=== PATIENT | male | born 1960 | race Caucasian/White ===

== ENCOUNTER 2019-11-07 11:01 | Inpatient (IN) | payer OTHER ==
[~2019-11-07] VITALS: Ht 182.9 cm; Wt 100.6 kg
[2019-11-07] MEDS ORDERED: ASPirin 81 mg TAB PO ONE (11:15)
[2019-11-07] MEDS ORDERED: ONDANSETRON HCL 4 MG/2 ML VIAL IV ONE (11:15)
[2019-11-07] MEDS ORDERED: MORPHINE SULFATE 4 MG/ML SYR/VIAL IV ONE (11:15)
[2019-11-07] MEDS ORDERED: ATENOLOL 25 MG TAB PO ONE (11:30)
[2019-11-07] MEDS ORDERED: dilTIAZem 25 MG/5 ML VIAL IV ONE (11:30)
[2019-11-07 11:54] LABS: Basophils # (auto) 0.1 10 ^3/uL (0-0.2); Basophils % (auto) 0.7 % (0.0-2.0); Eosinophils # (auto) 0.1 10 ^3/uL (0-0.8); Eosinophils % (auto) 0.6 % (0.0-7.0); Hematocrit 46.6 % (41.0-53.0); Hemoglobin 16.4 g/dL (13.5-17.5); Lymphocytes # (auto) 1.3 10 ^3/uL (0.4-5.4); Lymphocytes % (auto) 15.5 % (10.0-50.0); Mean Corpuscular Hgb Conc. 35.1 g/dL (32.0-36.0); Mean Corpuscular Volume 102.6 fL (80.0-100.0); Monocytes # (auto) 0.5 10 ^3/uL (0-1.3); Monocytes % (auto) 6.1 % (0.0-12.0); Neutrophils # (auto) 6.5 10 ^3/uL (1.6-8.6); Neutrophils % (auto) 77.1 % (37.0-80.0); Platelet Count (auto) 207 10^3/uL (140-450); Red Blood Cells 4.54 10^6/uL (4.5-5.90); Red Cell Distribution Width 13.5 % (11.8-14.3); White Blood Cell 8.5 10^3/uL (4.4-10.8)
[2019-11-07 12:09] LABS: Albumin 4.1 g/dL (3.4-5.0); Calcium 9.4 mg/dL (8.5-10.1); Potassium 4.1 mmol/L (3.5-5.1)
[2019-11-07 12:15] LABS: BUN/Creatinine Ratio 14.4; Bilirubin, Total 2.8 mg/dL (0.2-1.0); Total Protein 8.7 g/dL (6.4-8.2)
[2019-11-07] MEDS ORDERED: IOHEXOL 350 MG/ML 100ML IJ ONE (14:14)
[2019-11-07] MEDS ORDERED: traMADol HCL 50 MG TAB PO PRN (14:15)
[2019-11-07] MEDS ORDERED: NITROGLYCERIN 0.4 MG SL TAB SL PRN (14:15)
[2019-11-07] MEDS ORDERED: AMIODARONE HCL 150 MG in D5W 5% 100 ML IV ONE (14:15)
[2019-11-07] MEDS ORDERED: LACTULOSE 20Gm/30ML SOLN PO PRN (14:15)
[2019-11-07] MEDS ORDERED: ENOXAPARIN SOD 100 MG/1 ML SYRINGE SC ONE (14:15)
[2019-11-07] MEDS ORDERED: MORPHINE SULF INJ 2 MG/ML SYRINGE 1ML IV PRN (14:15)
[2019-11-07] MEDS ORDERED: ACETAMINOPHEN 500 MG TAB PO PRN (14:15)
[2019-11-07] MEDS ORDERED: AMIODARONE 450mg/250ml AE 250 ML IV SCH ×2 (14:25→20:25)
[2019-11-07] MEDS ORDERED: DIGOXIN (250MCG/ML) 2 ML AMPULE IV ONE (16:30)
[2019-11-07] MEDS ORDERED: SODIUM CHLORIDE 0.9% 1,000 ML IV ONE (16:30)
[2019-11-07] MEDS ORDERED: cefTRIAXone 1GM/50ML D5W 50 ML IV ONE (18:30)
[2019-11-07] MEDS ORDERED: FAMOTIDINE (10MG/ML) 2ML VL IV SCH (18:30)
[2019-11-07 19:05] LABS: Amylase 34 U/L (25-115); Lipase 168 U/L (73-393)
--- NOTE | 2019-11-07 20:25 | NUR ---
Telemetry admit from ER LUIS ALFREDO CHARLES admitted to Telemetry unit after SBAR received. Patient oriented to Anneliese parish RN, unit, room, bed, and unit policies regarding patient care and visiting hours. Patient now on continuous telemetry monitoring, tele box # 74 and telemetry reading on arrival to unit is AFIB 99. Patient placed on bedside oxygen, weighed by bed scale and encouraged to call if they need something. All questions and concerns addressed, patient verbalized understanding. Note: Came per wheelchair awake alert oriented x 4, placed in the bed comfortably, vital signs checked.
[2019-11-07] MEDS: metroNIDAZOLE 500MG/100ML 100 ML IV SCH (21:18)
[2019-11-07] MEDS ORDERED: SPIR50TA5 PO (21:19)
[2019-11-07] MEDS ORDERED: DILT60TA27 PO (21:19)
[2019-11-07] MEDS ORDERED: SOTA120T39 PO (21:19)
[2019-11-07] MEDS ORDERED: POTA1TAB61 PO (21:19)
[2019-11-07] MEDS ORDERED: ASPI81CH43 PO (21:19)
[2019-11-07 22:00] VITALS: BP 101/70
[2019-11-07] MEDS: METOPROLOL TARTRATE 25 MG TAB PO SCH (22:00)
--- NOTE | 2019-11-07 22:00 | NUR ---
Clarified to Marion Sanches regarding the amiodarone drip , relayed heart rate is 94-99, also the blood pressure of 101/70, and said its the protocol,to continue as ordered.
[2019-11-07] MEDS: ATORVASTATIN 20 MG TAB PO SCH (22:14)
[2019-11-07] MEDS: ENOXAPARIN SOD 100 MG/1 ML SYRINGE SC SCH (22:14)
[2019-11-08 05:00] VITALS: BP 102/69
[2019-11-08] MEDS: metroNIDAZOLE 500MG/100ML 100 ML IV SCH ×3 (05:54→21:36)
[2019-11-08 06:09] LABS: Basophils # (auto) 0 10 ^3/uL (0-0.2); Eosinophils # (auto) 0.1 10 ^3/uL (0-0.8); Hemoglobin 13.6 g/dL (13.5-17.5); Lymphocytes # (auto) 0.9 10 ^3/uL (0.4-5.4); Monocytes # (auto) 0.3 10 ^3/uL (0-1.3); Neutrophils # (auto) 2.4 10 ^3/uL (1.6-8.6); Nucleated Red Blood Cells % 0.1 %; White Blood Cell 3.6 10^3/uL (4.4-10.8)
[2019-11-08 06:11] LABS: Basophils % (auto) 1.1 % (0.0-2.0); Eosinophils % (auto) 1.6 % (0.0-7.0); Hematocrit 39.2 % (41.0-53.0); Lymphocytes % (auto) 23.8 % (10.0-50.0); Mean Corpuscular Hgb Conc. 34.7 g/dL (32.0-36.0); Monocytes % (auto) 8.6 % (0.0-12.0); Neutrophils % (auto) 64.9 % (37.0-80.0); Platelet Count (auto) 129 10^3/uL (140-450); Red Blood Cells 3.77 10^6/uL (4.5-5.90); Red Cell Distribution Width 13.4 % (11.8-14.3)
[2019-11-08 06:20] LABS: Alcohol, Urine < 3.0 mg/dL (0-10); Amphetamine Screen, Urine NEGATIVE (NEGATIVE); Barbiturate Scree,Urine NEGATIVE (NEGATIVE); Benzodiazephine Screen, Urine NEGATIVE (NEGATIVE); Cannabinoid Screen, Urine NEGATIVE (NEGATIVE); Cocaine Screen, Urine NEGATIVE (NEGATIVE); Phencyclidine Screen, Urine NEGATIVE (NEGATIVE)
[2019-11-08 06:26] LABS: Albumin 3.3 g/dL (3.4-5.0); Anion Gap 6 (5-15); Blood Urea Nitrogen 15 mg/dL (7-18); Calcium 8.2 mg/dL (8.5-10.1); Carbon Dioxide 27 mmol/L (21-32); Chloride 100 mmol/L (98-107); Glucose 147 mg/dL (74-106); Potassium 3.7 mmol/L (3.5-5.1); Sodium 133 mmol/L (136-145)
[2019-11-08 06:32] LABS: Alanine Aminotransferase 38 U/L (16-61); Alkaline Phosphatase 104 U/L (45-117); Aspartate Aminotransferase 66 U/L (15-37); BUN/Creatinine Ratio 17.2; Bilirubin, Total 1.6 mg/dL (0.2-1.0); Cholesterol 155 mg/dL (< 200); GFR African American 115 mL/min; GFR Non-African American 95 mL/min; HDL Cholesterol 35 mg/dL (40-59); LDL Cholesterol 117 mg/dL (< 100); Total Protein 7.1 g/dL (6.4-8.2); Triglycerides 72 mg/dL (< 150)
[2019-11-08 06:40] LABS: Opiate Scree,Urine POSITIVE (NEGATIVE)
--- NOTE | 2019-11-08 07:24 | NUR ---
Care report given to Shashank Benjamin, patient is NPO maintained for surgical consult.
--- NOTE | 2019-11-08 08:00 | NUR ---
OPENING SHIFT NOTE: PATIENT AWAKE A/OX4 RESTING SUPINE IN BED. PATIENT UPDATED ON PLAN OF CARE. VERBALIZED UNDERSTANDING. PATIENT REPORTING PAIN 9/10, WILL MEDICATE ORDERED. CALL LIGHT WITHIN REACH, WILL CONTINUE TO MONITOR.
[2019-11-08] MEDS ORDERED: AMIODARONE HCL 200 MG TAB PO ONE (08:15)
--- NOTE | 2019-11-08 08:29 | NUR ---
PATIENT TAKEN DOWN TO NUC MED.
--- NOTE | 2019-11-08 09:17 | NUR ---
PATIENT BACK IN ROOM FROM HIDA SCAN.
[2019-11-08] MEDS ORDERED: ASPirin 81 mg TAB PO SCH (10:00)
[2019-11-08] MEDS: PANTOPRAZOLE 40 MG TAB PO SCH (10:03)
[2019-11-08] MEDS: ASPirin 81 mg TAB PO SCH (10:03)
[2019-11-08] MEDS: METOPROLOL TARTRATE 25 MG TAB PO SCH ×2 (10:05→22:00)
[2019-11-08] MEDS: ENOXAPARIN SOD 100 MG/1 ML SYRINGE SC SCH ×2 (10:07→22:06)
[2019-11-08] MEDS: MORPHINE SULF INJ 2 MG/ML SYRINGE 1ML IV PRN ×2 (10:08→16:54)
[2019-11-08] MEDS: PROMETHAZINE HCL 25 MG/ML 1ML IV PRN (10:08)
--- NOTE | 2019-11-08 11:13 | NUR ---
MD DEGROOT AT BEDSIDE.. DISCUSSING POC SURGERY NOT NECESSARY AT THIS TIME. PT. VERBALIZED UNDERSTANDING.
[2019-11-08 13:16] VITALS: BP 102/68
[2019-11-08] MEDS ORDERED: DIGOXIN 0.125 MG TAB PO ONE (15:45)
[2019-11-08 17:21] LABS: Urine Bacteria NONE SEEN /hpf (None Seen); Urine Blood 1+ /uL (Negative); Urine Hyaline Cast FEW /lpf (0 - 2); Urine Mucus FEW (None Seen); Urine Specific Gravity 1.026 (1.001-1.035); Urine WBC 1 /hpf (0 - 3)
[2019-11-08 17:49] VITALS: BP 97/64
--- NOTE | 2019-11-08 18:53 | NUR ---
CARE ENDORSED TO NOC RN.
--- NOTE | 2019-11-08 20:00 | NUR ---
Opening Shift Note Assumed care of patient, awake and alert. No S/S of distress/SOB or pain. Instructed on POC and to call for assist PRN, will continue to monitor for changes Q1hr and PRN.
[2019-11-08] MEDS: ATORVASTATIN 20 MG TAB PO SCH (21:37)
[2019-11-08] MEDS: cefTRIAXone 1GM/50ML D5W 50 ML IV SCH (21:43)
[2019-11-08 22:00] VITALS: BP 98/62
[2019-11-09 05:00] VITALS: BP 93/62
[2019-11-09] MEDS: MORPHINE SULF INJ 2 MG/ML SYRINGE 1ML IV PRN ×3 (05:24→21:48)
[2019-11-09] MEDS: metroNIDAZOLE 500MG/100ML 100 ML IV SCH ×3 (05:39→21:49)
[2019-11-09 07:12] LABS: Basophils # (auto) 0 10 ^3/uL (0-0.2); Basophils % (auto) 0.7 % (0.0-2.0); Eosinophils # (auto) 0.1 10 ^3/uL (0-0.8); Hemoglobin 13.3 g/dL (13.5-17.5); Monocytes # (auto) 0.3 10 ^3/uL (0-1.3); Platelet Count (auto) 113 10^3/uL (140-450)
[2019-11-09 07:19] LABS: Hematocrit 38.1 % (41.0-53.0); Lymphocytes # (auto) 0.9 10 ^3/uL (0.4-5.4); Lymphocytes % (auto) 27.8 % (10.0-50.0); Mean Corpuscular Hemoglobin 36.3 pg (28.0-32.0); Mean Corpuscular Volume 103.6 fL (80.0-100.0); Monocytes % (auto) 7.8 % (0.0-12.0); Neutrophils # (auto) 2.1 10 ^3/uL (1.6-8.6); Neutrophils % (auto) 61.7 % (37.0-80.0); Nucleated Red Blood Cells % 0.1 %; Red Blood Cells 3.68 10^6/uL (4.5-5.90); Red Cell Distribution Width 13.4 % (11.8-14.3); White Blood Cell 3.4 10^3/uL (4.4-10.8)
--- NOTE | 2019-11-09 07:26 | NUR ---
Care report given to Shashank Plasencia, patient is resting no discomfort.
--- NOTE | 2019-11-09 07:30 | NUR ---
Opening Shift Note Assuming care of patient at this time. Patient is awake and alert. Patient denies pain at this time. Patient shows no signs or symptoms of distress or shortness of breath. Bed is locked and lowered with side rails up x2. Instructed patient on the plan of care for today and to call for assistance as needed. Call light within reach. Will continue to round hourly and as needed.
[2019-11-09 07:36] LABS: Anion Gap 5 (5-15); Blood Urea Nitrogen 13 mg/dL (7-18); Calcium 8.2 mg/dL (8.5-10.1); Carbon Dioxide 26 mmol/L (21-32); Chloride 105 mmol/L (98-107); Glucose 102 mg/dL (74-106); Potassium 3.5 mmol/L (3.5-5.1); Sodium 136 mmol/L (136-145)
[2019-11-09 07:43] LABS: Alanine Aminotransferase 38 U/L (16-61); Alkaline Phosphatase 98 U/L (45-117); Aspartate Aminotransferase 58 U/L (15-37); BUN/Creatinine Ratio 17.8; GFR African American 140 mL/min; GFR Non-African American 116 mL/min; Total Protein 6.6 g/dL (6.4-8.2)
[2019-11-09 09:00] VITALS: BP 100/65
[2019-11-09] MEDS: DIGOXIN 0.125 MG TAB PO SCH (09:54)
[2019-11-09] MEDS: PANTOPRAZOLE 40 MG TAB PO SCH (09:54)
[2019-11-09] MEDS: ASPirin 81 mg TAB PO SCH (09:54)
[2019-11-09] MEDS: METOPROLOL TARTRATE 25 MG TAB PO SCH ×2 (09:55→23:42)
[2019-11-09] MEDS: ENOXAPARIN SOD 100 MG/1 ML SYRINGE SC SCH ×2 (10:00→23:43)
[2019-11-09 13:00] VITALS: BP 118/74
[2019-11-09 17:14] VITALS: BP 110/69
--- NOTE | 2019-11-09 19:22 | NUR ---
Closing Shift Note Patient resting in bed. No distress noted. Report given. Will endorse care to director of partnerships RN.
[2019-11-09] MEDS: PROMETHAZINE HCL 25 MG/ML 1ML IV PRN (21:24)
--- NOTE | 2019-11-09 21:48 | NUR ---
Morphine given for pain in pt's chest and back that he says is the same type pain he has been having and receiving MS. Phenergan given to prevent poss N?V from morphine.
[2019-11-09 22:00] VITALS: BP 113/77
[2019-11-09] MEDS: cefTRIAXone 1GM/50ML D5W 50 ML IV SCH (23:39)
[2019-11-09] MEDS: ATORVASTATIN 20 MG TAB PO SCH (23:43)
--- NOTE | 2019-11-10 00:10 | NUR ---
Speaking with pt re. his medications, reviewing SE of metoprolol and atorvastatin. Pt has been on metoprolol before and had diff with dizziness and light headedness. He agreed to take it tonight but wants to talk to DrSheron about getting on sotalol instead. Pt states pain med given earlier, "knocked it out".
[2019-11-10 05:00] VITALS: BP 104/73
[2019-11-10] MEDS: metroNIDAZOLE 500MG/100ML 100 ML IV SCH ×3 (05:49→22:27)
[2019-11-10 09:00] VITALS: BP 104/73
[2019-11-10] MEDS ORDERED: RIVAROXABAN 20 MG TAB PO SCH (10:00)
[2019-11-10] MEDS: AMIODARONE HCL 200 MG TAB PO SCH ×2 (10:12→21:38)
[2019-11-10] MEDS: DIGOXIN 0.125 MG TAB PO SCH (10:12)
[2019-11-10] MEDS: ASPirin 81 mg TAB PO SCH (10:12)
[2019-11-10] MEDS: METOPROLOL TARTRATE 25 MG TAB PO SCH ×2 (10:14→21:39)
[2019-11-10] MEDS: PANTOPRAZOLE 40 MG TAB PO SCH (10:14)
--- NOTE | 2019-11-10 10:20 | NUR ---
Spoke to Nursing Aide MD Allen aware of patient's status. states Cardioversion tomorrow and give Xarelto now and tomorrow morning. Will medicate as ordered and cont care.
[2019-11-10 11:44] LABS: Basophils # (auto) 0 10 ^3/uL (0-0.2); Eosinophils # (auto) 0.1 10 ^3/uL (0-0.8); Neutrophils # (auto) 2.3 10 ^3/uL (1.6-8.6); Red Cell Distribution Width 13.9 % (11.8-14.3); White Blood Cell 3.5 10^3/uL (4.4-10.8)
[2019-11-10 11:46] LABS: Basophils % (auto) 1.3 % (0.0-2.0); Eosinophils % (auto) 1.7 % (0.0-7.0); Hematocrit 40.4 % (41.0-53.0); Hemoglobin 13.6 g/dL (13.5-17.5); Lymphocytes # (auto) 0.8 10 ^3/uL (0.4-5.4); Lymphocytes % (auto) 23.1 % (10.0-50.0); Mean Corpuscular Hemoglobin 35.5 pg (28.0-32.0); Mean Corpuscular Hgb Conc. 33.7 g/dL (32.0-36.0); Mean Corpuscular Volume 105.2 fL (80.0-100.0); Monocytes # (auto) 0.4 10 ^3/uL (0-1.3); Monocytes % (auto) 10.2 % (0.0-12.0); Neutrophils % (auto) 63.7 % (37.0-80.0); Platelet Count (auto) 111 10^3/uL (140-450); Red Blood Cells 3.84 10^6/uL (4.5-5.90)
[2019-11-10 11:59] LABS: INR 1.29 (0.9-1.15)
[2019-11-10 12:09] LABS: Potassium 3.4 mmol/L (3.5-5.1)
--- NOTE | 2019-11-10 12:30 | NUR ---
Nutrition Assessment Est energy needs 4352-0700 kcal (14-18 kcal/kg BW 102.3kg) Est protein needs 81-105g (1-1.3g/kg IBW 80.9kg) Will reassess prn. Addendum: 11/10/19 at 1231 by [address] Amended: Links added.
[2019-11-10 12:34] VITALS: BP 103/70
[2019-11-10 17:00] VITALS: BP 105/70
--- NOTE | 2019-11-10 19:00 | NUR ---
Patient care endorsed to Antonia rn. Patient sitting up in bed no acute distress or sob noted. Call light within reach.
[2019-11-10] MEDS: cefTRIAXone 1GM/50ML D5W 50 ML IV SCH (21:38)
[2019-11-10] MEDS: ATORVASTATIN 20 MG TAB PO SCH (21:39)
[2019-11-10] MEDS: TEMAZEPAM 15 MG CAP PO PRN (21:39)
[2019-11-10 22:00] VITALS: BP 123/79
[2019-11-10] MEDS: PROMETHAZINE HCL 25 MG/ML 1ML IV PRN (23:35)
[2019-11-10] MEDS: MORPHINE SULF INJ 2 MG/ML SYRINGE 1ML IV PRN (23:35)
[2019-11-11 05:00] VITALS: BP 98/59
[2019-11-11] MEDS: metroNIDAZOLE 500MG/100ML 100 ML IV SCH ×2 (06:05→14:17)
[2019-11-11 06:32] LABS: Basophils # (auto) 0 10 ^3/uL (0-0.2); Eosinophils # (auto) 0.1 10 ^3/uL (0-0.8); Hemoglobin 13.5 g/dL (13.5-17.5); Monocytes # (auto) 0.3 10 ^3/uL (0-1.3); Red Cell Distribution Width 13.9 % (11.8-14.3); White Blood Cell 3.4 10^3/uL (4.4-10.8)
[2019-11-11 06:35] LABS: Basophils % (auto) 1.3 % (0.0-2.0); Eosinophils % (auto) 3.2 % (0.0-7.0); Hematocrit 40.1 % (41.0-53.0); Lymphocytes # (auto) 0.8 10 ^3/uL (0.4-5.4); Lymphocytes % (auto) 23.9 % (10.0-50.0); Mean Corpuscular Hemoglobin 35.5 pg (28.0-32.0); Mean Corpuscular Hgb Conc. 33.6 g/dL (32.0-36.0); Mean Corpuscular Volume 105.5 fL (80.0-100.0); Monocytes % (auto) 9.2 % (0.0-12.0); Neutrophils # (auto) 2.1 10 ^3/uL (1.6-8.6); Neutrophils % (auto) 62.4 % (37.0-80.0); Nucleated Red Blood Cells % 0.1 %; Platelet Count (auto) 96 10^3/uL (140-450)
[2019-11-11 07:12] LABS: BUN/Creatinine Ratio 16.9; Calcium 8.8 mg/dL (8.5-10.1); Potassium 3.7 mmol/L (3.5-5.1)
[2019-11-11 09:00] VITALS: BP 106/68
[2019-11-11] MEDS: METOPROLOL TARTRATE 25 MG TAB PO SCH ×2 (09:07→20:57)
[2019-11-11] MEDS: ASPirin 81 mg TAB PO SCH (09:07)
[2019-11-11] MEDS: PANTOPRAZOLE 40 MG TAB PO SCH (09:08)
[2019-11-11] MEDS: DIGOXIN 0.125 MG TAB PO SCH (09:08)
[2019-11-11] MEDS: AMIODARONE HCL 200 MG TAB PO SCH ×2 (09:08→20:57)
[2019-11-11] MEDS: RIVAROXABAN 20 MG TAB PO SCH (09:09)
[2019-11-11 13:00] VITALS: BP 100/70
[2019-11-11 16:54] VITALS: BP 99/67
[2019-11-11] MEDS: ATORVASTATIN 20 MG TAB PO SCH (20:56)
[2019-11-11] MEDS: MORPHINE SULF INJ 2 MG/ML SYRINGE 1ML IV PRN (20:58)
[2019-11-11] MEDS: PROMETHAZINE HCL 25 MG/ML 1ML IV PRN (20:58)
[2019-11-11] MEDS: TEMAZEPAM 15 MG CAP PO PRN (20:58)
[2019-11-11 22:28] VITALS: BP 116/71
[2019-11-12] VITALS: BP 145/74
[2019-11-12 00:05] VITALS: BP 106/52
[2019-11-12 05:00] VITALS: BP 97/70
[2019-11-12 06:52] LABS: Basophils # (auto) 0 10 ^3/uL (0-0.2); Eosinophils # (auto) 0.1 10 ^3/uL (0-0.8); Monocytes # (auto) 0.4 10 ^3/uL (0-1.3); Neutrophils # (auto) 2.5 10 ^3/uL (1.6-8.6); Nucleated Red Blood Cells % 0.1 %; Platelet Count (auto) 107 10^3/uL (140-450); White Blood Cell 4.1 10^3/uL (4.4-10.8)
[2019-11-12 06:53] LABS: Basophils % (auto) 0.8 % (0.0-2.0); Eosinophils % (auto) 3.1 % (0.0-7.0); Hematocrit 40.4 % (41.0-53.0); Lymphocytes # (auto) 1.1 10 ^3/uL (0.4-5.4); Lymphocytes % (auto) 25.8 % (10.0-50.0); Mean Corpuscular Hemoglobin 36.2 pg (28.0-32.0); Mean Corpuscular Hgb Conc. 34.7 g/dL (32.0-36.0); Mean Corpuscular Volume 104.4 fL (80.0-100.0); Monocytes % (auto) 10.2 % (0.0-12.0); Neutrophils % (auto) 60.1 % (37.0-80.0); Red Blood Cells 3.87 10^6/uL (4.5-5.90); Red Cell Distribution Width 13.7 % (11.8-14.3)
[2019-11-12 07:10] LABS: Potassium 3.8 mmol/L (3.5-5.1)
[2019-11-12 07:17] LABS: BUN/Creatinine Ratio 18.2; Calcium 8.7 mg/dL (8.5-10.1)
[2019-11-12 09:00] VITALS: BP 105/71
[2019-11-12] MEDS: PANTOPRAZOLE 40 MG TAB PO SCH (10:20)
[2019-11-12] MEDS: ASPirin 81 mg TAB PO SCH (10:20)
[2019-11-12] MEDS: AMIODARONE HCL 200 MG TAB PO SCH (10:20)
[2019-11-12] MEDS: METOPROLOL TARTRATE 25 MG TAB PO SCH (10:22)
[2019-11-12] MEDS: RIVAROXABAN 20 MG TAB PO SCH (10:23)
[2019-11-12] MEDS: DIGOXIN 0.125 MG TAB PO SCH (10:23)
--- NOTE | 2019-11-12 11:40 | NUR ---
cardioversion patient transported via hospital bed. consents signed and in the chart. patient denied pain, no SOB respirations relaxed and even. Endorsed care to preop nurse.
[2019-11-12] MEDS ORDERED: MIDAZOLAM HCL 1MG/1ML-2 ML VIAL IV ONE (12:45)
--- NOTE | 2019-11-12 14:30 | NUR ---
RETURNED FROM HOTEL OR MOTEL MANAGER PATIENT CARDIOVERTED BY DR JOHNSON. CURRENTLY A NSR 65 BP 94/61. PATIENT TOLERATED WELL, DENIED PAIN, NO SOB. CHEST MILD REDNESS TO LEFT LATERAL CHEST AND UPPER RIGHT CHEST. WILL CONTINUE TO MONITOR.
[2019-11-12 14:50] VITALS: BP 105/71
[2019-11-12 16:55] VITALS: BP 101/59
--- NOTE | 2019-11-12 19:20 | NUR ---
OPENING SHIFT- NOC SHIFT PATIENT ALREADY DISCHARGED DURING DAY SHIFT. DISCHARGE PAPER WORK COMPLETED ENTIRELY BY AREA FIELD WORKER RN. PATIENTIS WAITING FOR A RIDE. DISCHARGE INSTRUCTIONS GIVEN. ALL PERSONAL BELONGINGS ACCOUNTED FOR AND WITH PATIENT.
--- NOTE | 2019-11-12 19:24 | NUR ---
ENDORSED TO NIGHT RN PATIENT ALREADY DISCHARGED, WAITING FOR A RIDE. IV REMOVED, TELE BOX SENT TO ICU. NEW MEDICATIONS REVIEWED AND EDUCATION PROVIDED. DISCHARGE INSTRUCTIONS GIVEN. ALL PERSONAL BELONGINGS ACCOUNTED FOR.
--- NOTE | 2019-11-12 20:55 | NUR ---
PATIENT OFF FLOOR WALKING INDEPENDENTLY, STEADY GAIT NOTED. NO S/SX OF DISTRESS, SOB OR PAIN. PATIENT STATES THAT HE HAD A PLEASANT STAY. ALL BELONGINGS WITH PATIENT, INCLUDING DISCHARGE PAPER WORK AND INSTRUCTIONS. . THIS PATIENT WAS DISCHARGED DURING DAY SHIFT; PATIENT WAS WAITING FOR RIDE.
[2019-11-13] MEDS ORDERED: AMIODARONE HCL 200 MG TAB PO SCH (10:00)
[2019-11-26] MEDS ORDERED: AMIODARONE HCL 200 MG TAB PO SCH (22:00)
== END 2019-11-12 20:55 | disposition home or self-care (01) | DRG 308 ==
LOC: ER 11:01 → OVERFLOW 11:02 → TELE-WESTW 20:48
PROVIDERS: ADMIT Internal Medicine; ATTEND Internal Medicine
PROC: 5A2204Z Restoration of Cardiac Rhythm, Single (ICD-10-PCS; principal; 2019-11-12)
DX: I48.92 Unspecified atrial flutter (principal); I33.0 Acute and subacute infective endocarditis; I50.23 Acute on chronic systolic (congestive) heart failure; D68.69 Other thrombophilia; E44.0 Moderate protein-calorie malnutrition; E87.1 Hypo-osmolality and hyponatremia; I85.00 Esophageal varices without bleeding; K76.6 Portal hypertension; K92.2 Gastrointestinal hemorrhage, unspecified; J98.11 Atelectasis; I48.20 Chronic atrial fibrillation, unspecified; E66.9 Obesity, unspecified; E78.5 Hyperlipidemia, unspecified; I48.0 Paroxysmal atrial fibrillation; K76.0 Fatty (change of) liver, not elsewhere classified; Z79.899 Other long term (current) drug therapy; Z82.49 Family history of ischemic heart disease and other diseases of the circulatory system; Z86.711 Personal history of pulmonary embolism; Z86.718 Personal history of other venous thrombosis and embolism; Z68.30 Body mass index [BMI] 30.0-30.9, adult
CPT/HCPCS: 36415; 71045; 71275; 76705; 78226; 80048; 80053; 80061; 80307; 81001; 82150; 83036; 83690; 83735; 83880; 84443; 84484; 85025; 85379; 85610; 85652; 87081; 93005; 93306; 93970; 96374; 96375; 99152; 99291; G0378; J0696; J2250; J2405; J3490; J7060

== ENCOUNTER 2020-05-08 17:15 | Inpatient (IN) | payer MEDICAID, OTHER ==
[~2020-05-08] VITALS: Ht 182.9 cm; Wt 95.0 kg
[~2020-05-08 17:15] MED LIST: ASPI81CH43 PO; POTA1TAB61 PO; SPIR50TA5 PO
[2020-05-08 18:00] LABS: Basophils # (auto) 0.1 10 ^3/uL (0-0.2); Basophils % (auto) 1.1 % (0.0-2.0); Eosinophils # (auto) 0 10 ^3/uL (0-0.8); Eosinophils % (auto) 0.7 % (0.0-7.0); Hematocrit 38.9 % (41.0-53.0); Hemoglobin 13.3 g/dL (13.5-17.5); Lymphocytes # (auto) 0.7 10 ^3/uL (0.4-5.4); Lymphocytes % (auto) 12.7 % (10.0-50.0); Mean Corpuscular Hemoglobin 33.9 pg (28.0-32.0); Mean Corpuscular Hgb Conc. 34.3 g/dL (32.0-36.0); Mean Corpuscular Volume 98.8 fL (80.0-100.0); Monocytes # (auto) 0.5 10 ^3/uL (0-1.3); Neutrophils # (auto) 4.4 10 ^3/uL (1.6-8.6); Neutrophils % (auto) 76.5 % (37.0-80.0); Nucleated Red Blood Cells % 0.3 %; Red Blood Cells 3.94 10^6/uL (4.5-5.90); Red Cell Distribution Width 12.9 % (11.8-14.3); White Blood Cell 5.7 10^3/uL (4.4-10.8)
[2020-05-08] MEDS ORDERED: MORPHINE SULFATE INJECTION 2 MG/ML SYRG IV ONE (18:00)
[2020-05-08] MEDS ORDERED: ONDANSETRON HCL 4 MG/2 ML VIAL IV ONE (18:00)
[2020-05-08] MEDS ORDERED: SODIUM CHLORIDE 0.9% 1,000 ML IVB ONE (18:00)
[2020-05-08 18:15] LABS: Albumin 3.4 g/dL (3.4-5.0); Calcium 9.2 mg/dL (8.5-10.1); Potassium 3.8 mmol/L (3.5-5.1)
[2020-05-08 18:18] LABS: BUN/Creatinine Ratio 10.1; Bilirubin, Total 0.7 mg/dL (0.2-1.0); Total Protein 8.4 g/dL (6.4-8.2)
[2020-05-08 18:45] LABS: INR 1.24 (0.9-1.15); Partial Thromboplastin Time 29.1 sec (23.0-31.2)
[2020-05-09] MEDS ORDERED: ACETAMINOPHEN 325 MG TAB PO PRN (01:45)
[2020-05-09] MEDS ORDERED: MORPHINE SULFATE INJECTION 2 MG/ML SYRG IV PRN (01:45)
[2020-05-09] MEDS ORDERED: DOCUSATE SOD 100 MG CAP PO PRN (01:45)
[2020-05-09] MEDS ORDERED: D5W/SOD CHLO 0.9% 1,000 ML IV SCH ×2 (01:45→09:45)
[2020-05-09] MEDS ORDERED: NITROGLYCERIN 0.4 MG SL TAB SL PRN (01:45)
[2020-05-09] MEDS: ONDANSETRON HCL 4 MG/2 ML VIAL IV PRN ×4 (02:18→22:05)
[2020-05-09 02:50] LABS: Basophils # (auto) 0 10 ^3/uL (0-0.2); Eosinophils # (auto) 0.1 10 ^3/uL (0-0.8); Eosinophils % (auto) 1.4 % (0.0-7.0)
[2020-05-09 02:53] LABS: Hematocrit 35.8 % (41.0-53.0); Hemoglobin 12.5 g/dL (13.5-17.5); Lymphocytes # (auto) 0.9 10 ^3/uL (0.4-5.4); Lymphocytes % (auto) 23.1 % (10.0-50.0); Mean Corpuscular Hemoglobin 34.3 pg (28.0-32.0); Mean Corpuscular Hgb Conc. 34.9 g/dL (32.0-36.0); Mean Corpuscular Volume 98.3 fL (80.0-100.0); Monocytes # (auto) 0.4 10 ^3/uL (0-1.3); Monocytes % (auto) 11.2 % (0.0-12.0); Neutrophils # (auto) 2.4 10 ^3/uL (1.6-8.6); Neutrophils % (auto) 63.3 % (37.0-80.0); Nucleated Red Blood Cells % 0.1 %; Red Blood Cells 3.64 10^6/uL (4.5-5.90); Red Cell Distribution Width 13.3 % (11.8-14.3); White Blood Cell 3.8 10^3/uL (4.4-10.8)
[2020-05-09 03:04] LABS: Albumin 2.8 g/dL (3.4-5.0); BUN/Creatinine Ratio 10.2; Calcium 8.3 mg/dL (8.5-10.1); Potassium 3.8 mmol/L (3.5-5.1)
[2020-05-09 03:07] LABS: Bilirubin, Total 0.8 mg/dL (0.2-1.0); Total Protein 7.3 g/dL (6.4-8.2)
[2020-05-09 04:32] VITALS: BP 122/69
[2020-05-09 05:00] VITALS: BP 122/69
[2020-05-09] MEDS: SPIRONOLACTONE 25 MG TAB PO SCH ×2 (06:23→18:02)
[2020-05-09 08:40] VITALS: BP 122/73
[2020-05-09] MEDS: ENOXAPARIN SOD 40 MG/0.4 ML SYRINGE SC SCH (08:46)
[2020-05-09] MEDS: ZINC SULFATE 220mg CAP or TAB PO SCH (08:46)
[2020-05-09] MEDS: PANTOPRAZOLE 40 MG/10 ML VIAL INJ IV SCH ×2 (08:46→21:10)
[2020-05-09] MEDS: ASCORBIC ACID 500 MG TAB PO SCH ×2 (08:47→21:11)
[2020-05-09] MEDS: MORPHINE SULFATE INJECTION 2 MG/ML SYRG IV PRN (08:47)
[2020-05-09] MEDS: MULTIPLE VITAMIN TAB PO SCH (08:47)
[2020-05-09] MEDS: D5W/SOD CHLO 0.9% 1,000 ML IV SCH ×3 (10:37→23:05)
[2020-05-09 12:28] VITALS: BP 123/76
[2020-05-09] MEDS: HYDROcodone-ACET 5/325MG TAB PO PRN ×2 (13:08→19:29)
[2020-05-09 17:00] VITALS: BP 116/72
[2020-05-09] MEDS: MUPIROCIN 2% OINT 15gm or 22gm EACHNOSTRI SCH (21:10)
[2020-05-09 22:00] VITALS: BP 118/71
[2020-05-10 05:00] VITALS: BP 111/70
[2020-05-10] MEDS: SPIRONOLACTONE 25 MG TAB PO SCH ×2 (05:34→18:21)
[2020-05-10] MEDS: HYDROcodone-ACET 5/325MG TAB PO PRN ×3 (05:34→21:26)
[2020-05-10] MEDS: D5W/SOD CHLO 0.9% 1,000 ML IV SCH ×3 (06:29→23:05)
[2020-05-10 09:00] VITALS: BP 107/67
[2020-05-10 09:01] LABS: Eosinophils # (auto) 0.1 10 ^3/uL (0-0.8); Hemoglobin 13.4 g/dL (13.5-17.5); Lymphocytes # (auto) 0.8 10 ^3/uL (0.4-5.4); Monocytes # (auto) 0.3 10 ^3/uL (0-1.3); Neutrophils # (auto) 3.3 10 ^3/uL (1.6-8.6); White Blood Cell 4.6 10^3/uL (4.4-10.8)
[2020-05-10 09:03] LABS: Basophils # (auto) 0.1 10 ^3/uL (0-0.2); Basophils % (auto) 1.2 % (0.0-2.0); Eosinophils % (auto) 1.3 % (0.0-7.0); Hematocrit 38.9 % (41.0-53.0); Lymphocytes % (auto) 17.4 % (10.0-50.0); Mean Corpuscular Hemoglobin 34.5 pg (28.0-32.0); Mean Corpuscular Hgb Conc. 34.5 g/dL (32.0-36.0); Mean Corpuscular Volume 99.8 fL (80.0-100.0); Monocytes % (auto) 7.2 % (0.0-12.0); Neutrophils % (auto) 72.9 % (37.0-80.0); Red Cell Distribution Width 13.1 % (11.8-14.3)
[2020-05-10] MEDS: MUPIROCIN 2% OINT 15gm or 22gm EACHNOSTRI SCH ×2 (09:05→21:26)
[2020-05-10] MEDS: PANTOPRAZOLE 40 MG/10 ML VIAL INJ IV SCH ×2 (09:06→21:25)
[2020-05-10] MEDS: ASCORBIC ACID 500 MG TAB PO SCH ×2 (09:06→21:26)
[2020-05-10] MEDS: MULTIPLE VITAMIN TAB PO SCH (09:06)
[2020-05-10] MEDS: ZINC SULFATE 220mg CAP or TAB PO SCH (09:06)
[2020-05-10] MEDS: ENOXAPARIN SOD 40 MG/0.4 ML SYRINGE SC SCH ×2 (09:07→09:25)
[2020-05-10 09:17] LABS: Albumin 2.9 g/dL (3.4-5.0); BUN/Creatinine Ratio 6.1; Calcium 8.3 mg/dL (8.5-10.1); Potassium 3.9 mmol/L (3.5-5.1)
[2020-05-10 09:20] LABS: Bilirubin, Total 0.6 mg/dL (0.2-1.0); Total Protein 7.5 g/dL (6.4-8.2)
[2020-05-10 10:48] LABS: Urine Bacteria NONE SEEN /hpf (None Seen); Urine Blood Negative /uL (Negative); Urine Hyaline Cast FEW /lpf (0 - 2); Urine Mucus FEW (None Seen); Urine Specific Gravity 1.011 (1.001-1.035); Urine WBC 1 /hpf (0 - 3)
[2020-05-10] MEDS: MORPHINE SULFATE INJECTION 2 MG/ML SYRG IV PRN (10:53)
[2020-05-10] MEDS ORDERED: METOCLOPRAMIDE HCL 5MG/ml INJ 2ml VIAL ONE (11:27)
[2020-05-10] MEDS ORDERED: LIDOCAINE VISCOUS 2% 15ML UD ONE (11:57)
[2020-05-10] MEDS ORDERED: diphenhdrAMINE HCL 50 MG/1 ML VL ONE (11:57)
[2020-05-10] MEDS ORDERED: SODIUM CHLORIDE LOCK 10 ML ONE (11:57)
[2020-05-10] MEDS: Ensure HIGH Protein Chocolate 8oz Bottle PO SCH ×2 (12:00→18:00)
[2020-05-10] MEDS: MIDAZOLAM HCL 5 MG/ML-1ML VIAL ONE ×2 (12:05→12:09)
[2020-05-10] MEDS: fentaNYL CITRATE 100 MCG/2 ML VL ONE ×2 (12:05→12:09)
[2020-05-10] MEDS: ONDANSETRON HCL 4 MG/2 ML VIAL IV PRN ×2 (13:37→23:23)
[2020-05-10] MEDS ORDERED: MORPHINE SULFATE 4 MG/ML SYR/VIAL IV ONE (14:00)
[2020-05-10] MEDS: PROMETHAZINE HCL 25 MG/ML 1ML IV PRN (14:04)
[2020-05-10] MEDS: LORazepam 2MG/ML-1ML VIAL IV PRN (16:15)
[2020-05-10] MEDS ORDERED: HEPARIN SODIUM (PORCINE) 5000 UNITS/ML 1ML VIAL IV ONE (16:30)
[2020-05-10 17:00] VITALS: BP 149/91
[2020-05-10] MEDS ORDERED: HEPARIN DRIP/D5W 100UNITS/ML 250 ML IV SCH (17:00)
[2020-05-10] MEDS ORDERED: HEPARIN 1,000 UNITS/ml 1ML VIAL IV SCH (17:00)
[2020-05-10] MEDS: SUCRALFATE 1 GM/10 ML ORAL SUSP PO SCH ×2 (17:17→21:25)
[2020-05-10] MEDS: HYDROmorphone HCL 2 MG/ML VL IV PRN ×2 (18:43→23:22)
[2020-05-10 19:23] LABS: INR 1.49 (0.9-1.15); Partial Thromboplastin Time 27.4 sec (23.0-31.2)
[2020-05-10 22:00] VITALS: BP 148/80
[2020-05-11 01:20] LABS: INR 1.42 (0.9-1.15); Partial Thromboplastin Time 39.3 sec (23.0-31.2)
[2020-05-11 04:00] VITALS: BP 144/74
[2020-05-11 05:30] LABS: Eosinophils # (auto) 0 10 ^3/uL (0-0.8); Lymphocytes # (auto) 0.5 10 ^3/uL (0.4-5.4); Nucleated Red Blood Cells % 0.1 %
[2020-05-11 05:34] LABS: Basophils # (auto) 0.1 10 ^3/uL (0-0.2); Basophils % (auto) 0.3 % (0.0-2.0); Hematocrit 46.4 % (41.0-53.0); Hemoglobin 15.6 g/dL (13.5-17.5); Lymphocytes % (auto) 2.3 % (10.0-50.0); Mean Corpuscular Hemoglobin 33.2 pg (28.0-32.0); Mean Corpuscular Hgb Conc. 33.5 g/dL (32.0-36.0); Mean Corpuscular Volume 99.1 fL (80.0-100.0); Monocytes # (auto) 1.1 10 ^3/uL (0-1.3); Monocytes % (auto) 5.6 % (0.0-12.0); Neutrophils # (auto) 18.5 10 ^3/uL (1.6-8.6); Neutrophils % (auto) 91.8 % (37.0-80.0); Red Blood Cells 4.68 10^6/uL (4.5-5.90); Red Cell Distribution Width 13.2 % (11.8-14.3); White Blood Cell 20.1 10^3/uL (4.4-10.8)
[2020-05-11 05:37] LABS: INR 1.5 (0.9-1.15); Partial Thromboplastin Time 45.3 sec (23.0-31.2)
[2020-05-11 05:42] LABS: Albumin 2.8 g/dL (3.4-5.0); Calcium 8.8 mg/dL (8.5-10.1); Potassium 4.2 mmol/L (3.5-5.1)
[2020-05-11 05:45] LABS: BUN/Creatinine Ratio 14.1; Total Protein 7.5 g/dL (6.4-8.2)
[2020-05-11] MEDS: SPIRONOLACTONE 25 MG TAB PO SCH ×2 (06:18→17:20)
[2020-05-11] MEDS: SUCRALFATE 1 GM/10 ML ORAL SUSP PO SCH ×4 (06:18→21:39)
[2020-05-11] MEDS: HYDROmorphone HCL 2 MG/ML VL IV PRN ×5 (06:21→21:49)
[2020-05-11] MEDS: ONDANSETRON HCL 4 MG/2 ML VIAL IV PRN ×4 (06:22→21:49)
[2020-05-11 07:30] VITALS: BP 142/84
[2020-05-11 07:43] LABS: INR 1.5 (0.9-1.15)
[2020-05-11] MEDS: Ensure HIGH Protein Chocolate 8oz Bottle PO SCH ×3 (09:08→18:58)
[2020-05-11] MEDS: ASCORBIC ACID 500 MG TAB PO SCH ×2 (09:23→21:39)
[2020-05-11] MEDS: MULTIPLE VITAMIN TAB PO SCH (09:24)
[2020-05-11] MEDS: PANTOPRAZOLE 40 MG/10 ML VIAL INJ IV SCH ×2 (09:24→21:50)
[2020-05-11] MEDS: ZINC SULFATE 220mg CAP or TAB PO SCH (09:24)
[2020-05-11] MEDS: MUPIROCIN 2% OINT 15gm or 22gm EACHNOSTRI SCH ×2 (09:33→22:05)
[2020-05-11] MEDS ORDERED: METOPROLOL TARTRATE 25 MG TAB PO ONE (11:30)
[2020-05-11] MEDS: D5W/SOD CHLO 0.9% 1,000 ML IV SCH ×2 (12:25→21:59)
[2020-05-11 12:40] VITALS: BP 157/91
[2020-05-11 13:29] LABS: INR 1.59 (0.9-1.15); Partial Thromboplastin Time 29.2 sec (23.0-31.2)
[2020-05-11] MEDS: HYDROcodone-ACET 5/325MG TAB PO PRN (14:29)
[2020-05-11] MEDS: PROMETHAZINE HCL 25 MG/ML 1ML IV PRN (14:29)
[2020-05-11 16:44] VITALS: BP 130/89
[2020-05-11 19:55] LABS: INR 1.59 (0.9-1.15); Partial Thromboplastin Time 29.9 sec (23.0-31.2)
[2020-05-11 22:00] VITALS: BP 145/86
[2020-05-11] MEDS ORDERED: METOPROLOL TARTRATE 25 MG TAB PO SCH (22:00)
[2020-05-11 22:43] LABS: Basophils # (auto) 0.1 10 ^3/uL (0-0.2); Basophils % (auto) 0.3 % (0.0-2.0); Eosinophils # (auto) 0 10 ^3/uL (0-0.8); Eosinophils % (auto) 0.1 % (0.0-7.0); Hematocrit 42.9 % (41.0-53.0); Hemoglobin 14.4 g/dL (13.5-17.5); Lymphocytes % (auto) 4.1 % (10.0-50.0); Mean Corpuscular Hemoglobin 33.3 pg (28.0-32.0); Mean Corpuscular Hgb Conc. 33.7 g/dL (32.0-36.0); Mean Corpuscular Volume 98.8 fL (80.0-100.0); Monocytes # (auto) 1.6 10 ^3/uL (0-1.3); Monocytes % (auto) 6.5 % (0.0-12.0); Neutrophils # (auto) 22.3 10 ^3/uL (1.6-8.6); Nucleated Red Blood Cells % 0.1 %; Red Blood Cells 4.34 10^6/uL (4.5-5.90); Red Cell Distribution Width 13.6 % (11.8-14.3); White Blood Cell 25.1 10^3/uL (4.4-10.8)
[2020-05-11 23:00] LABS: INR 1.59 (0.9-1.15); Partial Thromboplastin Time 29.5 sec (23.0-31.2)
[2020-05-11 23:02] LABS: Albumin 2.6 g/dL (3.4-5.0); BUN/Creatinine Ratio 15.5; Calcium 8.6 mg/dL (8.5-10.1); Potassium 4.4 mmol/L (3.5-5.1)
[2020-05-11 23:04] LABS: Total Protein 7.2 g/dL (6.4-8.2)
[2020-05-12] MEDS: LORazepam 2MG/ML-1ML VIAL IV PRN (00:33)
[2020-05-12 01:37] LABS: INR 1.62 (0.9-1.15)
[2020-05-12] MEDS: ONDANSETRON HCL 4 MG/2 ML VIAL IV PRN ×3 (03:16→20:10)
[2020-05-12] MEDS: HYDROmorphone HCL 2 MG/ML VL IV PRN ×5 (03:17→23:55)
[2020-05-12 05:00] VITALS: BP 137/77
[2020-05-12] MEDS: SPIRONOLACTONE 25 MG TAB PO SCH ×2 (06:00→18:27)
[2020-05-12] MEDS: SUCRALFATE 1 GM/10 ML ORAL SUSP PO SCH ×4 (06:36→21:53)
[2020-05-12 06:58] LABS: Basophils # (auto) 0.1 10 ^3/uL (0-0.2); Basophils % (auto) 0.4 % (0.0-2.0); Eosinophils # (auto) 0 10 ^3/uL (0-0.8); Hematocrit 40.8 % (41.0-53.0); Hemoglobin 13.9 g/dL (13.5-17.5); Lymphocytes # (auto) 0.8 10 ^3/uL (0.4-5.4); Lymphocytes % (auto) 3.9 % (10.0-50.0); Mean Corpuscular Hemoglobin 33.3 pg (28.0-32.0); Mean Corpuscular Hgb Conc. 34.1 g/dL (32.0-36.0); Mean Corpuscular Volume 97.8 fL (80.0-100.0); Monocytes # (auto) 1.3 10 ^3/uL (0-1.3); Monocytes % (auto) 5.8 % (0.0-12.0); Neutrophils # (auto) 19.7 10 ^3/uL (1.6-8.6); Neutrophils % (auto) 89.9 % (37.0-80.0); Red Blood Cells 4.17 10^6/uL (4.5-5.90); Red Cell Distribution Width 13.4 % (11.8-14.3); White Blood Cell 21.9 10^3/uL (4.4-10.8)
[2020-05-12 07:03] LABS: INR 1.62 (0.9-1.15); Partial Thromboplastin Time 29.9 sec (23.0-31.2)
[2020-05-12 07:16] LABS: Albumin 2.5 g/dL (3.4-5.0); BUN/Creatinine Ratio 18.2; Calcium 8.4 mg/dL (8.5-10.1); Potassium 4.3 mmol/L (3.5-5.1)
[2020-05-12 07:18] LABS: Bilirubin, Total 0.9 mg/dL (0.2-1.0); Total Protein 6.9 g/dL (6.4-8.2)
[2020-05-12] MEDS ORDERED: AMIODARONE HCL 150 MG in D5W 5% 100 ML IV ONE (08:00)
[2020-05-12] MEDS: Ensure HIGH Protein Chocolate 8oz Bottle PO SCH ×3 (08:00→17:53)
[2020-05-12] MEDS ORDERED: AMIODARONE 450mg/250ml AE 250 ML IV SCH (08:15)
[2020-05-12 08:31] VITALS: BP 130/87
[2020-05-12] MEDS ORDERED: DIGOXIN (250MCG/ML) 2 ML AMPULE IV ONE (09:15)
[2020-05-12] MEDS: PANTOPRAZOLE 40 MG/10 ML VIAL INJ IV SCH ×2 (10:00→21:39)
[2020-05-12] MEDS ORDERED: ENOXAPARIN SOD 40 MG/0.4 ML SYRINGE SC SCH (10:00)
[2020-05-12] MEDS: MULTIPLE VITAMIN TAB PO SCH (10:00)
[2020-05-12] MEDS: MUPIROCIN 2% OINT 15gm or 22gm EACHNOSTRI SCH ×2 (11:48→21:40)
[2020-05-12] MEDS ORDERED: dilTIAZem 25 MG/5 ML VIAL IV ONE (12:00)
[2020-05-12] MEDS ORDERED: cefTRIAXone 1GM/50ML D5W 50 ML IV ONE (12:15)
[2020-05-12 12:31] VITALS: BP 117/85
[2020-05-12] MEDS: DIGOXIN (250MCG/ML) 2 ML AMPULE IV SCH ×3 (15:01→23:09)
[2020-05-12] MEDS ORDERED: LIDOCAINE 1% (LOCAL ANESTH.) PF 5ml SDV ID ONE (16:15)
[2020-05-12 16:41] VITALS: BP 134/67
[2020-05-12] MEDS: dilTIAZem HCL 60 MG TAB PO SCH ×2 (17:22→21:41)
[2020-05-12] MEDS: AMIODARONE 450mg/250ml AE 250 ML IV SCH (17:23)
[2020-05-12] MEDS: metroNIDAZOLE 500MG/100ML 100 ML IV SCH ×2 (18:27→21:40)
[2020-05-12] MEDS: ENOXAPARIN SOD 100 MG/1 ML SYRINGE SC SCH (21:40)
[2020-05-12] MEDS: SODIUM CHLOR 0.9% PF (SALINE LOCK) 10ML VIAL/SYR IV SCH (21:40)
[2020-05-12 22:11] VITALS: BP 138/70
[2020-05-13] MEDS: HYDROmorphone HCL 2 MG/ML VL IV PRN ×3 (02:58→19:34)
[2020-05-13 05:10] VITALS: BP 121/84
[2020-05-13] MEDS: AMIODARONE 450mg/250ml AE 250 ML IV SCH (05:19)
[2020-05-13] MEDS: DIGOXIN (250MCG/ML) 2 ML AMPULE IV SCH (05:19)
[2020-05-13] MEDS: SUCRALFATE 1 GM/10 ML ORAL SUSP PO SCH ×4 (06:08→21:31)
[2020-05-13] MEDS: SPIRONOLACTONE 25 MG TAB PO SCH ×2 (06:08→17:24)
[2020-05-13] MEDS: dilTIAZem HCL 60 MG TAB PO SCH ×3 (06:08→21:38)
[2020-05-13] MEDS: metroNIDAZOLE 500MG/100ML 100 ML IV SCH ×3 (06:09→21:30)
[2020-05-13 06:54] LABS: Basophils # (auto) 0.1 10 ^3/uL (0-0.2); Basophils % (auto) 0.3 % (0.0-2.0); Eosinophils # (auto) 0 10 ^3/uL (0-0.8); Eosinophils % (auto) 0.2 % (0.0-7.0); Hematocrit 40.7 % (41.0-53.0); Hemoglobin 13.9 g/dL (13.5-17.5); Lymphocytes # (auto) 1.5 10 ^3/uL (0.4-5.4); Lymphocytes % (auto) 7.8 % (10.0-50.0); Mean Corpuscular Hemoglobin 33.8 pg (28.0-32.0); Mean Corpuscular Hgb Conc. 34.2 g/dL (32.0-36.0); Mean Corpuscular Volume 98.9 fL (80.0-100.0); Monocytes # (auto) 1.4 10 ^3/uL (0-1.3); Monocytes % (auto) 7.2 % (0.0-12.0); Neutrophils # (auto) 16.7 10 ^3/uL (1.6-8.6); Neutrophils % (auto) 84.5 % (37.0-80.0); Red Blood Cells 4.12 10^6/uL (4.5-5.90); Red Cell Distribution Width 13.5 % (11.8-14.3); White Blood Cell 19.8 10^3/uL (4.4-10.8)
[2020-05-13 07:12] LABS: Albumin 2.6 g/dL (3.4-5.0); Calcium 9.1 mg/dL (8.5-10.1); Potassium 4.1 mmol/L (3.5-5.1)
[2020-05-13 07:14] LABS: BUN/Creatinine Ratio 18.9; Bilirubin, Total 1.6 mg/dL (0.2-1.0); Total Protein 7.3 g/dL (6.4-8.2)
[2020-05-13] MEDS: Ensure HIGH Protein Chocolate 8oz Bottle PO SCH ×3 (08:46→17:23)
[2020-05-13 09:00] VITALS: BP 143/72
[2020-05-13] MEDS: cefTRIAXone 1GM/50ML D5W 50 ML IV SCH (09:06)
[2020-05-13] MEDS: MUPIROCIN 2% OINT 15gm or 22gm EACHNOSTRI SCH ×2 (09:07→21:31)
[2020-05-13] MEDS: SODIUM CHLOR 0.9% PF (SALINE LOCK) 10ML VIAL/SYR IV SCH ×2 (09:07→21:30)
[2020-05-13] MEDS: PANTOPRAZOLE 40 MG/10 ML VIAL INJ IV SCH ×2 (09:07→21:30)
[2020-05-13] MEDS: ENOXAPARIN SOD 100 MG/1 ML SYRINGE SC SCH ×2 (09:08→21:33)
[2020-05-13] MEDS: MULTIPLE VITAMIN TAB PO SCH (09:08)
[2020-05-13] MEDS ORDERED: DIGOXIN 0.125 MG TAB PO SCH (10:00)
[2020-05-13] MEDS ORDERED: SOTA80TA PO (11:38)
[2020-05-13 13:00] VITALS: BP 136/63
[2020-05-13] MEDS: HYDROcodone-ACET 10/325MG TAB PO PRN ×2 (13:40→21:32)
[2020-05-13] MEDS ORDERED: METOPROLOL TARTRATE 25 MG TAB PO ONE (14:00)
[2020-05-13 16:53] VITALS: BP 145/67
[2020-05-13 21:34] VITALS: BP 122/72
[2020-05-13] MEDS: METOPROLOL TARTRATE 25 MG TAB PO SCH (21:38)
[2020-05-14] MEDS: HYDROmorphone HCL 2 MG/ML VL IV PRN ×3 (00:07→18:20)
[2020-05-14] MEDS: AMIODARONE 450mg/250ml AE 250 ML IV SCH (01:17)
[2020-05-14 05:08] VITALS: BP 100/65
[2020-05-14] MEDS: dilTIAZem HCL 60 MG TAB PO SCH ×3 (05:50→21:54)
[2020-05-14] MEDS: metroNIDAZOLE 500MG/100ML 100 ML IV SCH ×3 (05:50→21:53)
[2020-05-14] MEDS: SPIRONOLACTONE 25 MG TAB PO SCH ×2 (05:51→17:49)
[2020-05-14 06:31] LABS: Basophils # (auto) 0 10 ^3/uL (0-0.2); Basophils % (auto) 0.3 % (0.0-2.0); Eosinophils # (auto) 0 10 ^3/uL (0-0.8); Eosinophils % (auto) 0.1 % (0.0-7.0); Hematocrit 36.5 % (41.0-53.0); Hemoglobin 12.4 g/dL (13.5-17.5); Lymphocytes % (auto) 5.9 % (10.0-50.0); Mean Corpuscular Hemoglobin 33.5 pg (28.0-32.0); Mean Corpuscular Hgb Conc. 33.9 g/dL (32.0-36.0); Mean Corpuscular Volume 98.7 fL (80.0-100.0); Monocytes # (auto) 1.3 10 ^3/uL (0-1.3); Monocytes % (auto) 7.7 % (0.0-12.0); Neutrophils # (auto) 14.3 10 ^3/uL (1.6-8.6); Nucleated Red Blood Cells % 0.2 %; Red Cell Distribution Width 13.9 % (11.8-14.3); White Blood Cell 16.7 10^3/uL (4.4-10.8)
[2020-05-14] MEDS: SUCRALFATE 1 GM/10 ML ORAL SUSP PO SCH ×4 (06:39→21:53)
[2020-05-14 06:48] LABS: Albumin 2.2 g/dL (3.4-5.0); BUN/Creatinine Ratio 23.8; Calcium 8.2 mg/dL (8.5-10.1); Potassium 4.3 mmol/L (3.5-5.1)
[2020-05-14 06:51] LABS: Bilirubin, Total 2.4 mg/dL (0.2-1.0); Total Protein 6.4 g/dL (6.4-8.2)
[2020-05-14] MEDS: Ensure HIGH Protein Chocolate 8oz Bottle PO SCH ×2 (08:00→12:00)
[2020-05-14 09:00] VITALS: BP 114/66
[2020-05-14] MEDS ORDERED: AMIODARONE HCL 200 MG TAB PO SCH (10:00)
[2020-05-14] MEDS: cefTRIAXone 1GM/50ML D5W 50 ML IV SCH (10:22)
[2020-05-14] MEDS: MUPIROCIN 2% OINT 15gm or 22gm EACHNOSTRI SCH (10:22)
[2020-05-14] MEDS: ENOXAPARIN SOD 100 MG/1 ML SYRINGE SC SCH ×2 (10:23→21:52)
[2020-05-14] MEDS: MULTIPLE VITAMIN TAB PO SCH (10:23)
[2020-05-14] MEDS: SODIUM CHLOR 0.9% PF (SALINE LOCK) 10ML VIAL/SYR IV SCH ×2 (10:23→21:54)
[2020-05-14] MEDS: METOPROLOL TARTRATE 25 MG TAB PO SCH ×2 (10:23→21:55)
[2020-05-14] MEDS: PANTOPRAZOLE 40 MG/10 ML VIAL INJ IV SCH ×2 (10:23→21:52)
[2020-05-14] MEDS ORDERED: AMIODARONE HCL 200 MG TAB PO ONE (11:00)
[2020-05-14 13:00] VITALS: BP 104/62
[2020-05-14 17:00] VITALS: BP 116/72
[2020-05-14] MEDS: AMIODARONE HCL 200 MG TAB PO SCH (21:54)
[2020-05-14] MEDS: MAGNESIUM OXIDE 400 MG TAB PO SCH (21:54)
[2020-05-14 22:00] VITALS: BP 126/72
[2020-05-15] MEDS: HYDROcodone-ACET 10/325MG TAB PO PRN ×2 (00:37→09:29)
[2020-05-15] MEDS: SOD CHL 0.45% 1,000 ML IV SCH ×2 (02:14→22:08)
[2020-05-15] MEDS: HYDROmorphone HCL 2 MG/ML VL IV PRN ×3 (03:55→16:16)
[2020-05-15 05:00] VITALS: BP 104/58
[2020-05-15 05:44] LABS: Basophils # (auto) 0 10 ^3/uL (0-0.2); Basophils % (auto) 0.1 % (0.0-2.0); Eosinophils # (auto) 0 10 ^3/uL (0-0.8); Eosinophils % (auto) 0.1 % (0.0-7.0); Hematocrit 36.9 % (41.0-53.0); Hemoglobin 12.8 g/dL (13.5-17.5); Lymphocytes # (auto) 1.2 10 ^3/uL (0.4-5.4); Lymphocytes % (auto) 5.8 % (10.0-50.0); Mean Corpuscular Hgb Conc. 34.6 g/dL (32.0-36.0); Mean Corpuscular Volume 98.3 fL (80.0-100.0); Monocytes # (auto) 1.5 10 ^3/uL (0-1.3); Monocytes % (auto) 7.3 % (0.0-12.0); Neutrophils # (auto) 17.5 10 ^3/uL (1.6-8.6); Neutrophils % (auto) 86.7 % (37.0-80.0); Nucleated Red Blood Cells % 0.1 %; Red Blood Cells 3.76 10^6/uL (4.5-5.90); Red Cell Distribution Width 13.5 % (11.8-14.3); White Blood Cell 20.2 10^3/uL (4.4-10.8)
[2020-05-15] MEDS: SPIRONOLACTONE 25 MG TAB PO SCH ×2 (05:54→17:56)
[2020-05-15] MEDS: dilTIAZem HCL 60 MG TAB PO SCH ×3 (05:54→21:55)
[2020-05-15] MEDS: metroNIDAZOLE 500MG/100ML 100 ML IV SCH ×3 (05:54→21:54)
[2020-05-15 06:03] LABS: Albumin 2.2 g/dL (3.4-5.0); Calcium 8.7 mg/dL (8.5-10.1); Potassium 4.4 mmol/L (3.5-5.1)
[2020-05-15] MEDS: SUCRALFATE 1 GM/10 ML ORAL SUSP PO SCH ×5 (06:04→22:00)
[2020-05-15 06:05] LABS: BUN/Creatinine Ratio 36.4
[2020-05-15 06:15] LABS: Bilirubin, Total 2.2 mg/dL (0.2-1.0); Total Protein 6.8 g/dL (6.4-8.2)
[2020-05-15] MEDS: cefTRIAXone 1GM/50ML D5W 50 ML IV SCH (08:48)
[2020-05-15 09:00] VITALS: BP 121/56
[2020-05-15] MEDS: PANTOPRAZOLE 40 MG/10 ML VIAL INJ IV SCH ×2 (09:28→21:54)
[2020-05-15] MEDS: MAGNESIUM OXIDE 400 MG TAB PO SCH ×2 (09:29→21:55)
[2020-05-15] MEDS: METOPROLOL TARTRATE 25 MG TAB PO SCH ×2 (09:29→21:55)
[2020-05-15] MEDS: ENOXAPARIN SOD 100 MG/1 ML SYRINGE SC SCH ×2 (09:29→21:54)
[2020-05-15] MEDS: SODIUM CHLOR 0.9% PF (SALINE LOCK) 10ML VIAL/SYR IV SCH ×2 (09:29→21:54)
[2020-05-15] MEDS: AMIODARONE HCL 200 MG TAB PO SCH ×2 (09:29→21:56)
[2020-05-15] MEDS: MULTIPLE VITAMIN TAB PO SCH (09:29)
[2020-05-15 14:23] VITALS: BP 114/61
[2020-05-15 17:00] VITALS: BP 117/87
[2020-05-15] MEDS: LORazepam 2MG/ML-1ML VIAL IV PRN (18:37)
[2020-05-15 22:00] VITALS: BP 120/64
[2020-05-16] MEDS: HYDROmorphone HCL 2 MG/ML VL IV PRN ×7 (00:05→21:12)
[2020-05-16 05:00] VITALS: BP 120/64
[2020-05-16] MEDS: metroNIDAZOLE 500MG/100ML 100 ML IV SCH ×2 (05:54→13:28)
[2020-05-16] MEDS: SPIRONOLACTONE 25 MG TAB PO SCH (05:55)
[2020-05-16] MEDS: SUCRALFATE 1 GM/10 ML ORAL SUSP PO SCH ×3 (05:55→16:38)
[2020-05-16] MEDS: dilTIAZem HCL 60 MG TAB PO SCH ×2 (05:55→13:29)
[2020-05-16 07:01] LABS: Basophils # (auto) 0 10 ^3/uL (0-0.2); Eosinophils # (auto) 0 10 ^3/uL (0-0.8); Hemoglobin 12.7 g/dL (13.5-17.5); Lymphocytes # (auto) 1.1 10 ^3/uL (0.4-5.4); Mean Corpuscular Volume 97.8 fL (80.0-100.0); Red Cell Distribution Width 14.1 % (11.8-14.3)
[2020-05-16 07:05] LABS: Basophils % (auto) 0.1 % (0.0-2.0); Eosinophils % (auto) 0.1 % (0.0-7.0); Lymphocytes % (auto) 5.6 % (10.0-50.0); Mean Corpuscular Hemoglobin 32.7 pg (28.0-32.0); Mean Corpuscular Hgb Conc. 33.4 g/dL (32.0-36.0); Monocytes # (auto) 1.4 10 ^3/uL (0-1.3); Monocytes % (auto) 7.2 % (0.0-12.0); Neutrophils # (auto) 17.2 10 ^3/uL (1.6-8.6); Red Blood Cells 3.89 10^6/uL (4.5-5.90); White Blood Cell 19.8 10^3/uL (4.4-10.8)
[2020-05-16 07:15] LABS: Potassium 4.6 mmol/L (3.5-5.1)
[2020-05-16 07:23] LABS: Albumin 2.1 g/dL (3.4-5.0); Bilirubin, Total 2.2 mg/dL (0.2-1.0); Calcium 8.6 mg/dL (8.5-10.1); Total Protein 6.8 g/dL (6.4-8.2)
[2020-05-16 07:26] LABS: INR 1.91 (0.9-1.15)
[2020-05-16 08:56] VITALS: BP 118/58
[2020-05-16] MEDS: PANTOPRAZOLE 40 MG/10 ML VIAL INJ IV SCH (09:31)
[2020-05-16] MEDS: cefTRIAXone 1GM/50ML D5W 50 ML IV SCH (09:31)
[2020-05-16] MEDS: ENOXAPARIN SOD 100 MG/1 ML SYRINGE SC SCH (09:32)
[2020-05-16] MEDS: AMIODARONE HCL 200 MG TAB PO SCH (09:32)
[2020-05-16] MEDS: METOPROLOL TARTRATE 25 MG TAB PO SCH (09:32)
[2020-05-16] MEDS: MULTIPLE VITAMIN TAB PO SCH (09:32)
[2020-05-16] MEDS: MAGNESIUM OXIDE 400 MG TAB PO SCH (09:33)
[2020-05-16] MEDS: SODIUM CHLOR 0.9% PF (SALINE LOCK) 10ML VIAL/SYR IV SCH (09:33)
[2020-05-16] MEDS ORDERED: PHYTONADIONE (VIT K)10 MG/ML 1ML VIAL SUBCUT ONE (09:45)
[2020-05-16] MEDS ORDERED: TPN PER PHARMACY 0 ML IV SCH (10:00)
[2020-05-16] MEDS ORDERED: phytonadione 10 MG in SODIUM CHL 0.9% 50 ML IV ONE (10:30)
[2020-05-16] MEDS: SODIUM CHLORIDE 0.9% 1,000 ML IV SCH ×2 (10:45→20:00)
[2020-05-16 10:48] LABS: Magnesium 2.8 mg/dL (1.6-2.6)
[2020-05-16 10:52] LABS: Pre Albumin < 3.0 mg/dL (20.0-40.0); Triglycerides 78 mg/dL (< 150)
[2020-05-16] MEDS: InsuLIN REG 1unit/0.01ml Soln (100units/ml) SC SCH ×2 (11:34→17:15)
[2020-05-16] MEDS: ACCU-CHEK COMFORT CURVE STRIP VI SCH ×2 (11:34→17:15)
[2020-05-16] MEDS ORDERED: DEXTROSE (50%) 50ML SYRG IV SCH (12:00)
[2020-05-16 12:52] VITALS: BP 108/67
[2020-05-16 16:37] VITALS: BP 102/57
[2020-05-16 18:22] VITALS: BP 102/57
[2020-05-16] MEDS ORDERED: TPN PER PHARMACY IV NR ×5 (20:00)
[2020-05-16 21:52] VITALS: BP 115/69
== END 2020-05-16 21:29 | disposition short-term general hospital (02) | DRG 720 ==
LOC: ER 17:18 → TELE 05-09 01:49 → TELE-CENTR 05-09 04:18
PROVIDERS: ADMIT Nurse Practitioner Family; ATTEND Internal Medicine
PROC: 0DB68ZX Excision of Stomach, Via Natural or Artificial Opening Endoscopic, Diagnostic (ICD-10-PCS; 2020-05-10)
PROC: 0DB78ZX Excision of Stomach, Pylorus, Via Natural or Artificial Opening Endoscopic, Diagnostic (ICD-10-PCS; principal; 2020-05-10 11:30)
PROC: 02HV33Z Insertion of Infusion Device into Superior Vena Cava, Percutaneous Approach (ICD-10-PCS; 2020-05-12)
DX: A41.9 Sepsis, unspecified organism (principal); K55.059 Acute (reversible) ischemia of intestine, part and extent unspecified; E43 Unspecified severe protein-calorie malnutrition; K70.30 Alcoholic cirrhosis of liver without ascites; I50.31 Acute diastolic (congestive) heart failure; I85.10 Secondary esophageal varices without bleeding; E87.1 Hypo-osmolality and hyponatremia; K76.6 Portal hypertension; R16.1 Splenomegaly, not elsewhere classified; I48.0 Paroxysmal atrial fibrillation; N17.0 Acute kidney failure with tubular necrosis; K57.30 Diverticulosis of large intestine without perforation or abscess without bleeding; E86.0 Dehydration; J98.11 Atelectasis; D68.69 Other thrombophilia; N18.9 Chronic kidney disease, unspecified; D63.8 Anemia in other chronic diseases classified elsewhere; F10.21 Alcohol dependence, in remission; I13.0 Hypertensive heart and chronic kidney disease with heart failure and stage 1 through stage 4 chronic kidney disease, or unspecified chronic kidney disease; I81 Portal vein thrombosis; K40.20 Bilateral inguinal hernia, without obstruction or gangrene, not specified as recurrent; Z80.1 Family history of malignant neoplasm of trachea, bronchus and lung; Z82.49 Family history of ischemic heart disease and other diseases of the circulatory system; Z86.711 Personal history of pulmonary embolism; Z86.718 Personal history of other venous thrombosis and embolism; F10.20 Alcohol dependence, uncomplicated; Z20.822 Contact with and (suspected) exposure to COVID-19; K29.70 Gastritis, unspecified, without bleeding; Z22.322 Carrier or suspected carrier of Methicillin resistant Staphylococcus aureus
CPT/HCPCS: 10022; 36415; 36569; 43239; 49083; 71045; 71046; 74018; 74176; 74177; 76700; 76705; 76942; 80053; 80076; 81001; 82040; 82140; 82150; 82962; 83605; 83690; 83735; 84100; 84443; 84478; 85025; 85048; 85610; 85730; 87040; 87081; 87426; 89051; 93005; 96361; 96372; 96374; 96375; 97116; C9113; G0378; J0696; J2250; J2405; J3430; J3490; J7042; J7060

== ENCOUNTER 2020-05-22 18:36 | Inpatient (IN) | payer MEDICAID ==
[~2020-05-22] VITALS: Ht 182.9 cm; Wt 95.8 kg
[~2020-05-22 18:36] MED LIST changes: -ASPI81CH43 PO; -POTA1TAB61 PO; +SOTA80TA PO; -SPIR50TA5 PO
[2020-05-22 22:00] VITALS: BP 115/74
[2020-05-22] MEDS ORDERED: ONDANSETRON HCL 4 MG/2 ML VIAL IV PRN (23:00)
[2020-05-22] MEDS ORDERED: NITROGLYCERIN 0.4 MG SL TAB SL PRN (23:00)
[2020-05-22] MEDS ORDERED: MORPHINE SULF INJ 2 MG/ML SYRINGE 1ML IV PRN (23:00)
[2020-05-22] MEDS: HYDROmorphone HCL 2 MG/ML VL IV PRN (23:48)
[2020-05-23] VITALS (27 sets, daily range): BP systolic 96–134; BP diastolic 57–84
[2020-05-23] LABS: Basophils # (auto) 0 10 ^3/uL (0-0.2); Basophils % (auto) 0.2 % (0.0-2.0); Eosinophils # (auto) 0.1 10 ^3/uL (0-0.8); Eosinophils % (auto) 0.4 % (0.0-7.0); Hematocrit 29.3 % (41.0-53.0); Hemoglobin 9.7 g/dL (13.5-17.5); Lymphocytes # (auto) 0.8 10 ^3/uL (0.4-5.4); Lymphocytes % (auto) 6.5 % (10.0-50.0); Mean Corpuscular Hemoglobin 32.9 pg (28.0-32.0); Mean Corpuscular Hgb Conc. 33.1 g/dL (32.0-36.0); Mean Corpuscular Volume 99.5 fL (80.0-100.0); Monocytes # (auto) 0.6 10 ^3/uL (0-1.3); Monocytes % (auto) 4.9 % (0.0-12.0); Neutrophils # (auto) 10.9 10 ^3/uL (1.6-8.6); Platelet Count (auto) 123 10^3/uL (140-450); Red Blood Cells 2.95 10^6/uL (4.5-5.90); Red Cell Distribution Width 15.7 % (11.8-14.3); White Blood Cell 12.4 10^3/uL (4.4-10.8)
[2020-05-23] MEDS ORDERED: ARTIFICIAL TEAR OPTH(EYE) OINT 3.5GM EACHEYE ONE
[2020-05-23 00:21] LABS: Albumin 3.4 g/dL (3.4-5.0); Calcium 8.1 mg/dL (8.5-10.1)
[2020-05-23 00:24] LABS: BUN/Creatinine Ratio 32.6; Bilirubin, Direct 2.9 mg/dL (0-0.2); Bilirubin, Total 4.1 mg/dL (0.2-1.0)
[2020-05-23] MEDS ORDERED: HEPARIN DRIP/D5W 100UNITS/ML 250 ML IV SCH (00:45)
[2020-05-23] MEDS ORDERED: HEPARIN SODIUM (PORCINE) 5000 UNITS/ML 1ML VIAL IV ONE (00:45)
[2020-05-23] MEDS: LACTULOSE 20Gm/30ML SOLN PO SCH ×6 (02:00→21:25)
[2020-05-23 02:01] LABS: INR 1.65 (0.9-1.15)
[2020-05-23 02:03] LABS: Partial Thromboplastin Time > 139.0 sec (23.0-31.2)
[2020-05-23] MEDS ORDERED: DEXTROSE (50%) 50ML SYRG IV PRN (02:30)
[2020-05-23] MEDS: HYDROmorphone HCL 2 MG/ML VL IV PRN ×2 (04:22→23:26)
[2020-05-23] MEDS ORDERED: PNEUMOCOCCAL VACC POLYS 25 MCG/0.5 ML VIAL IM ONE (06:15)
[2020-05-23] MEDS: InsuLIN REG 1unit/0.01ml Soln (100units/ml) SC SCH ×4 (07:00→22:00)
[2020-05-23] MEDS ORDERED: INSULIN LISPRO (HUMAN) 100 UNITS/ML ML SC SCH (07:00)
[2020-05-23] MEDS: SODIUM CHLOR 0.9% PF (SALINE LOCK) 10ML VIAL/SYR IV SCH ×3 (08:00→22:03)
[2020-05-23] MEDS: ACCU-CHEK COMFORT CURVE STRIP VI SCH ×4 (08:01→22:18)
[2020-05-23] MEDS: SIMETHICONE 80 MG CHEWABLE TABLET PO SCH ×3 (08:03→22:03)
[2020-05-23 08:40] LABS: Basophils # (auto) 0 10 ^3/uL (0-0.2); Basophils % (auto) 0.2 % (0.0-2.0); Eosinophils # (auto) 0.1 10 ^3/uL (0-0.8); Eosinophils % (auto) 0.6 % (0.0-7.0); Hematocrit 29.8 % (41.0-53.0); Hemoglobin 9.8 g/dL (13.5-17.5); Lymphocytes # (auto) 1.1 10 ^3/uL (0.4-5.4); Lymphocytes % (auto) 7.3 % (10.0-50.0); Mean Corpuscular Hemoglobin 33.3 pg (28.0-32.0); Mean Corpuscular Volume 101.1 fL (80.0-100.0); Monocytes # (auto) 0.8 10 ^3/uL (0-1.3); Monocytes % (auto) 4.9 % (0.0-12.0); Neutrophils # (auto) 13.4 10 ^3/uL (1.6-8.6); Nucleated Red Blood Cells % 0.3 %; Platelet Count (auto) 143 10^3/uL (140-450); Red Blood Cells 2.95 10^6/uL (4.5-5.90); Red Cell Distribution Width 15.7 % (11.8-14.3); White Blood Cell 15.5 10^3/uL (4.4-10.8)
[2020-05-23 09:09] LABS: Albumin 3.4 g/dL (3.4-5.0); Calcium 8.3 mg/dL (8.5-10.1); Potassium 4.3 mmol/L (3.5-5.1)
[2020-05-23 09:13] LABS: BUN/Creatinine Ratio 36.4; Bilirubin, Total 4.3 mg/dL (0.2-1.0); Total Protein 7.2 g/dL (6.4-8.2)
[2020-05-23 09:16] LABS: INR 1.57 (0.9-1.15)
[2020-05-23 09:17] LABS: Partial Thromboplastin Time 120.5 sec (23.0-31.2)
[2020-05-23] MEDS: PANTOPRAZOLE 40 MG/10 ML VIAL INJ IV SCH (09:43)
[2020-05-23] MEDS: SPIRONOLACTONE 25 MG TAB PO SCH (09:44)
[2020-05-23] MEDS: ASPirin-EC 81 mg tab PO SCH (09:44)
[2020-05-23] MEDS: POTASSIUM CHL 10 Meq TABLET PO SCH ×2 (10:00→14:07)
[2020-05-23] MEDS ORDERED: METOPROLOL TARTRATE 25 MG TAB PO SCH ×2 (10:00→22:00)
[2020-05-23] MEDS: CEFTRIAXONE SODIUM 2 GM in D5W 5% 50 ML IV SCH (11:16)
[2020-05-23] MEDS: LIDOCAINE 5% TOPICAL PATCH TOP SCH (11:16)
[2020-05-23] MEDS: metroNIDAZOLE 500MG/100ML 100 ML IV SCH ×2 (14:06→22:02)
[2020-05-23 17:15] LABS: INR 1.51 (0.9-1.15)
[2020-05-23] MEDS: MUPIROCIN 2% OINT 15gm or 22gm EACHNOSTRI SCH (22:02)
[2020-05-23 23:28] LABS: INR 1.88 (0.9-1.15); Partial Thromboplastin Time 56.7 sec (23.0-31.2)
[2020-05-24] MEDS: LACTULOSE 20Gm/30ML SOLN PO SCH ×6 (02:00→22:55)
[2020-05-24] MEDS: HYDROmorphone HCL 2 MG/ML VL IV PRN ×3 (04:44→22:55)
[2020-05-24 04:57] VITALS: BP 124/63
[2020-05-24] MEDS: SODIUM CHLOR 0.9% PF (SALINE LOCK) 10ML VIAL/SYR IV SCH ×3 (05:04→22:54)
[2020-05-24] MEDS: metroNIDAZOLE 500MG/100ML 100 ML IV SCH ×3 (05:04→22:54)
[2020-05-24] MEDS: SIMETHICONE 80 MG CHEWABLE TABLET PO SCH ×3 (05:05→22:56)
[2020-05-24] MEDS ORDERED: DIGOXIN (250MCG/ML) 2 ML AMPULE IV ONE ×3 (05:45→08:15)
[2020-05-24] MEDS: ACCU-CHEK COMFORT CURVE STRIP VI SCH ×4 (06:24→22:56)
[2020-05-24] MEDS: InsuLIN REG 1unit/0.01ml Soln (100units/ml) SC SCH ×4 (06:25→22:56)
[2020-05-24 06:37] LABS: INR 1.51 (0.9-1.15)
[2020-05-24 06:47] LABS: Eosinophils # (auto) 0.2 10 ^3/uL (0-0.8); Hemoglobin 9.4 g/dL (13.5-17.5); Monocytes # (auto) 0.9 10 ^3/uL (0-1.3); Platelet Count (auto) 146 10^3/uL (140-450)
[2020-05-24 06:49] LABS: Basophils # (auto) 0 10 ^3/uL (0-0.2); Basophils % (auto) 0.2 % (0.0-2.0); Eosinophils % (auto) 1.1 % (0.0-7.0); Hematocrit 28.1 % (41.0-53.0); Lymphocytes # (auto) 1.1 10 ^3/uL (0.4-5.4); Mean Corpuscular Hemoglobin 34.3 pg (28.0-32.0); Mean Corpuscular Hgb Conc. 33.6 g/dL (32.0-36.0); Mean Corpuscular Volume 102.1 fL (80.0-100.0); Monocytes % (auto) 5.6 % (0.0-12.0); Neutrophils # (auto) 13.7 10 ^3/uL (1.6-8.6); Neutrophils % (auto) 86.1 % (37.0-80.0); Red Blood Cells 2.75 10^6/uL (4.5-5.90); White Blood Cell 15.9 10^3/uL (4.4-10.8)
[2020-05-24 07:11] LABS: Albumin 2.7 g/dL (3.4-5.0); BUN/Creatinine Ratio 38.7; Calcium 7.6 mg/dL (8.5-10.1); Potassium 4.2 mmol/L (3.5-5.1)
[2020-05-24 07:14] LABS: Bilirubin, Total 3.9 mg/dL (0.2-1.0); Total Protein 6.5 g/dL (6.4-8.2)
[2020-05-24 08:55] VITALS: BP 117/66
[2020-05-24] MEDS ORDERED: HEPARIN DRIP/D5W 100UNITS/ML 250 ML IV SCH ×2 (09:30→13:30)
[2020-05-24] MEDS: PANTOPRAZOLE 40 MG/10 ML VIAL INJ IV SCH (10:54)
[2020-05-24] MEDS: POTASSIUM CHL 10 Meq TABLET PO SCH (10:55)
[2020-05-24] MEDS: SPIRONOLACTONE 25 MG TAB PO SCH (10:55)
[2020-05-24] MEDS: AMIODARONE HCL 200 MG TAB PO SCH ×2 (10:56→22:55)
[2020-05-24] MEDS: METOPROLOL TARTRATE 25 MG TAB PO SCH ×2 (10:57→22:56)
[2020-05-24] MEDS: ASPirin-EC 81 mg tab PO SCH (10:57)
[2020-05-24] MEDS: LIDOCAINE 5% TOPICAL PATCH TOP SCH (10:57)
[2020-05-24 13:00] VITALS: BP 109/68
[2020-05-24] MEDS: MUPIROCIN 2% OINT 15gm or 22gm EACHNOSTRI SCH ×2 (13:40→22:54)
[2020-05-24 17:04] VITALS: BP 102/65
[2020-05-24] MEDS: CEFTRIAXONE SODIUM 2 GM in D5W 5% 50 ML IV SCH (17:08)
[2020-05-24] MEDS: HEPARIN DRIP/D5W 100UNITS/ML 250 ML IV SCH (17:09)
[2020-05-24 20:55] LABS: INR 1.51 (0.9-1.15); Partial Thromboplastin Time 48.1 sec (23.0-31.2)
[2020-05-24 22:00] VITALS: BP 113/62
[2020-05-25] MEDS: LACTULOSE 20Gm/30ML SOLN PO SCH ×6 (02:00→22:52)
[2020-05-25 05:00] VITALS: BP 108/70
[2020-05-25] MEDS: metroNIDAZOLE 500MG/100ML 100 ML IV SCH (05:50)
[2020-05-25] MEDS: SIMETHICONE 80 MG CHEWABLE TABLET PO SCH ×3 (05:51→22:53)
[2020-05-25] MEDS: SODIUM CHLOR 0.9% PF (SALINE LOCK) 10ML VIAL/SYR IV SCH ×3 (05:51→22:52)
[2020-05-25] MEDS: InsuLIN REG 1unit/0.01ml Soln (100units/ml) SC SCH ×4 (06:36→22:53)
[2020-05-25] MEDS: ACCU-CHEK COMFORT CURVE STRIP VI SCH ×4 (06:36→22:53)
[2020-05-25 07:04] LABS: Basophils # (auto) 0.1 10 ^3/uL (0-0.2); Basophils % (auto) 0.3 % (0.0-2.0); Eosinophils # (auto) 0.1 10 ^3/uL (0-0.8); Eosinophils % (auto) 0.5 % (0.0-7.0); Hematocrit 30.1 % (41.0-53.0); Hemoglobin 10.1 g/dL (13.5-17.5); Lymphocytes # (auto) 1.2 10 ^3/uL (0.4-5.4); Lymphocytes % (auto) 5.4 % (10.0-50.0); Mean Corpuscular Hemoglobin 33.3 pg (28.0-32.0); Mean Corpuscular Hgb Conc. 33.4 g/dL (32.0-36.0); Mean Corpuscular Volume 99.8 fL (80.0-100.0); Monocytes # (auto) 1.2 10 ^3/uL (0-1.3); Monocytes % (auto) 5.4 % (0.0-12.0); Neutrophils # (auto) 19.6 10 ^3/uL (1.6-8.6); Neutrophils % (auto) 88.4 % (37.0-80.0); Nucleated Red Blood Cells % 0.1 %; Platelet Count (auto) 236 10^3/uL (140-450); Red Blood Cells 3.02 10^6/uL (4.5-5.90); Red Cell Distribution Width 15.3 % (11.8-14.3); White Blood Cell 22.1 10^3/uL (4.4-10.8)
[2020-05-25 07:19] LABS: Potassium 4.3 mmol/L (3.5-5.1)
[2020-05-25 07:24] LABS: Albumin 2.8 g/dL (3.4-5.0); Calcium 7.8 mg/dL (8.5-10.1)
[2020-05-25 07:26] LABS: Bilirubin, Total 4.8 mg/dL (0.2-1.0); Total Protein 7.1 g/dL (6.4-8.2)
[2020-05-25 07:32] LABS: INR 1.57 (0.9-1.15)
[2020-05-25] MEDS: HEPARIN DRIP/D5W 100UNITS/ML 250 ML IV SCH ×2 (08:46→18:24)
[2020-05-25] MEDS: HYDROmorphone HCL 2 MG/ML VL IV PRN ×2 (08:53→18:52)
[2020-05-25 09:00] VITALS: BP 95/61
[2020-05-25] MEDS: METOPROLOL TARTRATE 25 MG TAB PO SCH ×2 (10:00→23:30)
[2020-05-25] MEDS: AMIODARONE HCL 200 MG TAB PO SCH ×2 (10:00→22:52)
[2020-05-25] MEDS: ASPirin-EC 81 mg tab PO SCH (12:01)
[2020-05-25] MEDS: SPIRONOLACTONE 25 MG TAB PO SCH (12:01)
[2020-05-25] MEDS: PANTOPRAZOLE 40 MG/10 ML VIAL INJ IV SCH (12:01)
[2020-05-25] MEDS: POTASSIUM CHL 10 Meq TABLET PO SCH (12:02)
[2020-05-25] MEDS: MUPIROCIN 2% OINT 15gm or 22gm EACHNOSTRI SCH ×2 (12:02→22:51)
[2020-05-25] MEDS: CEFTRIAXONE SODIUM 2 GM in D5W 5% 50 ML IV SCH (12:02)
[2020-05-25] MEDS: LIDOCAINE 5% TOPICAL PATCH TOP SCH (12:03)
[2020-05-25] MEDS: DIGOXIN 0.125 MG TAB PO SCH (12:03)
[2020-05-25 13:00] VITALS: BP 111/78
[2020-05-25] MEDS ORDERED: PHYTONADIONE(VitK) ORAL Susp 10mg/10ml(1mg/ml) PO ONE (14:30)
[2020-05-25] MEDS: metroNIDAZOLE 500 MG TAB PO SCH ×2 (14:41→22:53)
[2020-05-25 17:00] VITALS: BP 110/71
[2020-05-25 20:14] LABS: Urine Bacteria NONE SEEN /hpf (None Seen); Urine Blood Negative /uL (Negative); Urine Hyaline Cast FEW /lpf (0 - 2); Urine Mucus FEW (None Seen); Urine Specific Gravity 1.027 (1.001-1.035); Urine Sperm PRESENT /hpf (None Seen); Urine WBC 4 /hpf (0 - 3)
[2020-05-25 22:00] VITALS: BP 109/66
[2020-05-25 23:12] LABS: INR 1.65 (0.9-1.15); Partial Thromboplastin Time 51.8 sec (23.0-31.2)
[2020-05-26] VITALS (12 sets, daily range): BP systolic 98–120; BP diastolic 59–72
[2020-05-26] MEDS: LACTULOSE 20Gm/30ML SOLN PO SCH ×6 (02:36→22:09)
[2020-05-26] MEDS: HYDROmorphone HCL 2 MG/ML VL IV PRN (02:49)
[2020-05-26] MEDS: SIMETHICONE 80 MG CHEWABLE TABLET PO SCH ×3 (05:40→22:09)
[2020-05-26] MEDS: SODIUM CHLOR 0.9% PF (SALINE LOCK) 10ML VIAL/SYR IV SCH ×3 (05:40→22:09)
[2020-05-26] MEDS: metroNIDAZOLE 500 MG TAB PO SCH ×3 (05:40→22:09)
[2020-05-26] MEDS: ACCU-CHEK COMFORT CURVE STRIP VI SCH ×4 (06:44→22:10)
[2020-05-26] MEDS: InsuLIN REG 1unit/0.01ml Soln (100units/ml) SC SCH ×4 (06:44→22:00)
[2020-05-26 06:49] LABS: Albumin 2.7 g/dL (3.4-5.0)
[2020-05-26 06:50] LABS: Basophils # (auto) 0.1 10 ^3/uL (0-0.2); Basophils % (auto) 0.3 % (0.0-2.0); Eosinophils # (auto) 0.1 10 ^3/uL (0-0.8); Eosinophils % (auto) 0.4 % (0.0-7.0); Hematocrit 29.2 % (41.0-53.0); Hemoglobin 9.7 g/dL (13.5-17.5); Lymphocytes % (auto) 5.5 % (10.0-50.0); Mean Corpuscular Hemoglobin 33.4 pg (28.0-32.0); Mean Corpuscular Hgb Conc. 33.2 g/dL (32.0-36.0); Mean Corpuscular Volume 100.5 fL (80.0-100.0); Monocytes % (auto) 5.7 % (0.0-12.0); Neutrophils # (auto) 15.6 10 ^3/uL (1.6-8.6); Neutrophils % (auto) 88.1 % (37.0-80.0); Nucleated Red Blood Cells % 0.2 %; Platelet Count (auto) 258 10^3/uL (140-450); Red Cell Distribution Width 16.2 % (11.8-14.3); White Blood Cell 17.7 10^3/uL (4.4-10.8)
[2020-05-26 06:51] LABS: Bilirubin, Total 4.6 mg/dL (0.2-1.0); Total Protein 7.2 g/dL (6.4-8.2)
[2020-05-26 06:52] LABS: INR 1.57 (0.9-1.15); Partial Thromboplastin Time 62.1 sec (23.0-31.2)
[2020-05-26] MEDS ORDERED: PHYTONADIONE(VitK) ORAL Susp 10mg/10ml(1mg/ml) PO SCH (10:00)
[2020-05-26] MEDS: METOPROLOL TARTRATE 25 MG TAB PO SCH ×2 (10:00→22:11)
[2020-05-26] MEDS: ASPirin-EC 81 mg tab PO SCH (10:00)
[2020-05-26] MEDS: PANTOPRAZOLE 40 MG/10 ML VIAL INJ IV SCH (11:02)
[2020-05-26] MEDS: POTASSIUM CHL 10 Meq TABLET PO SCH (11:03)
[2020-05-26] MEDS: DIGOXIN 0.125 MG TAB PO SCH (11:05)
[2020-05-26] MEDS: AMIODARONE HCL 200 MG TAB PO SCH ×2 (11:06→22:10)
[2020-05-26] MEDS: SPIRONOLACTONE 25 MG TAB PO SCH (11:06)
[2020-05-26] MEDS: LIDOCAINE 5% TOPICAL PATCH TOP SCH (11:10)
[2020-05-26] MEDS: CEFTRIAXONE SODIUM 2 GM in D5W 5% 50 ML IV SCH (11:13)
[2020-05-26 12:05] LABS: INR 1.48 (0.9-1.15); Partial Thromboplastin Time 32.5 sec (23.0-31.2)
[2020-05-26] MEDS: MUPIROCIN 2% OINT 15gm or 22gm EACHNOSTRI SCH ×2 (14:21→22:08)
[2020-05-26] MEDS ORDERED: oxyCODONE ER 10 MG TAB PO ONE (14:30)
[2020-05-26] MEDS ORDERED: MULT-1018 PO (17:57)
[2020-05-26] MEDS ORDERED: ASPI-498 PO (17:57)
[2020-05-26] MEDS ORDERED: POTA1TAB61 PO (17:57)
[2020-05-26] MEDS ORDERED: SPIR50TA5 PO (17:57)
[2020-05-26] MEDS ORDERED: SOTA120T39 PO (17:57)
[2020-05-26] MEDS ORDERED: DILT120C41 PO (17:57)
[2020-05-27] MEDS: LACTULOSE 20Gm/30ML SOLN PO SCH ×6 (02:00→17:52)
[2020-05-27] MEDS: HEPARIN DRIP/D5W 100UNITS/ML 250 ML IV SCH (04:00)
[2020-05-27 05:00] VITALS: BP 131/68
[2020-05-27] MEDS: metroNIDAZOLE 500 MG TAB PO SCH ×2 (05:59→13:30)
[2020-05-27] MEDS: SIMETHICONE 80 MG CHEWABLE TABLET PO SCH ×2 (05:59→13:30)
[2020-05-27] MEDS: SODIUM CHLOR 0.9% PF (SALINE LOCK) 10ML VIAL/SYR IV SCH ×2 (05:59→13:34)
[2020-05-27] MEDS: ACCU-CHEK COMFORT CURVE STRIP VI SCH ×3 (05:59→17:00)
[2020-05-27] MEDS: InsuLIN REG 1unit/0.01ml Soln (100units/ml) SC SCH ×3 (06:00→17:00)
[2020-05-27 06:02] LABS: Basophils # (auto) 0.1 10 ^3/uL (0-0.2); Basophils % (auto) 0.6 % (0.0-2.0); Eosinophils # (auto) 0 10 ^3/uL (0-0.8); Eosinophils % (auto) 0.2 % (0.0-7.0); Hematocrit 29.3 % (41.0-53.0); Hemoglobin 9.9 g/dL (13.5-17.5); Lymphocytes % (auto) 6.2 % (10.0-50.0); Mean Corpuscular Hgb Conc. 33.8 g/dL (32.0-36.0); Mean Corpuscular Volume 100.8 fL (80.0-100.0); Monocytes % (auto) 6.1 % (0.0-12.0); Neutrophils # (auto) 13.5 10 ^3/uL (1.6-8.6); Neutrophils % (auto) 86.9 % (37.0-80.0); Platelet Count (auto) 260 10^3/uL (140-450); Red Blood Cells 2.91 10^6/uL (4.5-5.90); Red Cell Distribution Width 16.8 % (11.8-14.3); White Blood Cell 15.6 10^3/uL (4.4-10.8)
[2020-05-27 06:19] LABS: Albumin 2.7 g/dL (3.4-5.0); Calcium 8.2 mg/dL (8.5-10.1); Potassium 3.5 mmol/L (3.5-5.1)
[2020-05-27 06:22] LABS: BUN/Creatinine Ratio 15.9; Bilirubin, Total 4.4 mg/dL (0.2-1.0); Total Protein 7.3 g/dL (6.4-8.2)
[2020-05-27 06:25] LABS: INR 1.57 (0.9-1.15)
[2020-05-27 09:00] VITALS: BP 125/79
[2020-05-27] MEDS: LIDOCAINE 5% TOPICAL PATCH TOP SCH (09:07)
[2020-05-27] MEDS: PANTOPRAZOLE 40 MG/10 ML VIAL INJ IV SCH (09:07)
[2020-05-27] MEDS: AMIODARONE HCL 200 MG TAB PO SCH (09:08)
[2020-05-27] MEDS: POTASSIUM CHL 10 Meq TABLET PO SCH (09:09)
[2020-05-27] MEDS: DIGOXIN 0.125 MG TAB PO SCH (09:09)
[2020-05-27] MEDS: SPIRONOLACTONE 25 MG TAB PO SCH (09:09)
[2020-05-27] MEDS: ASPirin-EC 81 mg tab PO SCH (09:10)
[2020-05-27] MEDS: METOPROLOL TARTRATE 25 MG TAB PO SCH (09:34)
[2020-05-27] MEDS: MUPIROCIN 2% OINT 15gm or 22gm EACHNOSTRI SCH (10:00)
[2020-05-27] MEDS: CEFTRIAXONE SODIUM 2 GM in D5W 5% 50 ML IV SCH (10:34)
[2020-05-27] MEDS: HYDROmorphone HCL 2 MG/ML VL IV PRN (12:37)
[2020-05-27 15:09] VITALS: BP 125/79
== END 2020-05-27 19:06 | disposition home or self-care (01) | DRG 280 ==
LOC: DOU IN ICU 22:03 → TELE-WESTW 05-23 22:04
PROVIDERS: ADMIT Internal Medicine; ATTEND Internal Medicine
PROC: 0W9G3ZZ Drainage of Peritoneal Cavity, Percutaneous Approach (ICD-10-PCS; principal; 2020-05-26)
DX: K70.31 Alcoholic cirrhosis of liver with ascites (principal); I50.43 Acute on chronic combined systolic (congestive) and diastolic (congestive) heart failure; K72.90 Hepatic failure, unspecified without coma; K76.7 Hepatorenal syndrome; K76.6 Portal hypertension; I48.91 Unspecified atrial fibrillation; E87.0 Hyperosmolality and hypernatremia; D68.9 Coagulation defect, unspecified; R65.10 Systemic inflammatory response syndrome (SIRS) of non-infectious origin without acute organ dysfunction; D69.6 Thrombocytopenia, unspecified; F10.10 Alcohol abuse, uncomplicated; D63.8 Anemia in other chronic diseases classified elsewhere; I85.10 Secondary esophageal varices without bleeding; E44.0 Moderate protein-calorie malnutrition; K55.069 Acute infarction of intestine, part and extent unspecified; I81 Portal vein thrombosis; E66.9 Obesity, unspecified; Z86.711 Personal history of pulmonary embolism; Z82.49 Family history of ischemic heart disease and other diseases of the circulatory system; Z79.899 Other long term (current) drug therapy; Z68.28 Body mass index [BMI] 28.0-28.9, adult; I11.0 Hypertensive heart disease with heart failure
CPT/HCPCS: 10022; 36415; 49083; 71045; 76700; 76705; 76942; 80053; 80076; 81001; 82140; 82150; 82962; 83690; 84443; 85025; 85048; 85610; 85730; 87040; 87081; 89051; 97116; C9113; G0378; J0696; J2405; J3490; J7060